=== PATIENT | female | born 1935 | race Caucasian/White ===

== ENCOUNTER 2017-09-21 06:09 | Day surgery (SDC) | payer MEDICARE ==
[~2017-09-21 06:09] MED LIST: Buffered Lidocaine 0.9% SYRIN* 5 ML/SYR SYRINGE INTRADERM ONE; Famotidine TAB* 20 MG PO ONE; Metoclopramide TAB* 10 MG PO ONE
[2017-09-21] MEDS ORDERED: Metoclopramide TAB* 10 MG ONE (06:23)
[2017-09-21] MEDS ORDERED: Famotidine TAB* 20 MG ONE (06:23)
[2017-09-21] MEDS ORDERED: Buffered Lidocaine 0.9% SYRIN* 5 ML/SYR SYRINGE ONE (06:23)
[2017-09-21] MEDS ORDERED: ceFAZolin 2 GM PREMIX (*) 2 GM/50 ML BAG IVPB ONE (06:23)
[2017-09-21] MEDS ORDERED: Lidocaine 1% INJ* 10 MG/ML 30 ML SDV ONE (07:05)
[2017-09-21] MEDS ORDERED: fentaNYL* 50 MCG/ML 2 ML VIAL (100 MCG VIAL) ONE (07:14)
[2017-09-21] MEDS ORDERED: Propofol* 10 MG/ML 20 ML BTL IV PUSH ONE (07:14)
[2017-09-21] MEDS ORDERED: Ondansetron INJ* 2 MG/ML VIAL ONE (07:14)
[2017-09-21] MEDS ORDERED: Lidocaine 2% PF * 5 ML VIAL ONE (07:14)
[2017-09-21] MEDS ORDERED: Dexamethasone IV* 4 MG/ML 1 ML (4 MG) ONE (07:14)
[2017-09-21] MEDS ORDERED: Midazolam* 1 MG/ML 5 ML VIAL (5 MG) ONE (07:15)
--- NOTE | 2017-09-21 08:56 | RAD ---
INDICATION: PowerPort placement COMPARISON: None FINDINGS: 12.7 seconds of fluoroscopy were provided for the surgical department. Fluoroscopic spot imaging of the chest were obtained for operative control and show placement of a right-sided PowerPort catheter. The course of the catheter appears as expected with termination in the superior vena cava . CPT II Codes: G9500 (fluoro time doc)
[2017-09-21 09:40] VITALS: BP 149/64
[2017-09-21] MEDS ORDERED: fentaNYL* 50 MCG/ML 2 ML VIAL (100 MCG VIAL) IV PRN (10:06)
[2017-09-21] MEDS ORDERED: Naloxone* 0.4 MG/ML 1 ML VIAL IV PRN (10:06)
[2017-09-21] MEDS ORDERED: Ondansetron ODT TAB* 4 MG PO PRN (10:06)
--- NOTE | 2017-09-22 12:25 | OP ---
CC: Milton Carolina MD; Db Hurley MD; Chandrika Browne MD * DATE OF OPERATION: 09/21/17 - [facility] DATE OF : 35 SURGEON: Db Lira MD REFRACTORY TECHNICIAN: None. ANESTHESIOLOGIST: Dr. Rincon. ANESTHESIA: Local MAC. PRE-OP DIAGNOSIS: Esophageal carcinoma. POST-OP DIAGNOSIS: Esophageal carcinoma. OPERATIVE PROCEDURE: Placement of PowerPort, right subclavian. ESTIMATED BLOOD LOSS: Less than 5 mL. IV FLUIDS: Crystalloids. SPECIMENS: None. DRAINS: None. COMPLICATIONS: None. COUNTS: The instrument, needle, and sponge counts were correct. DESCRIPTION OF PROCEDURE: The patient was brought to the operating room and placed on the table supine. Sequential compression devices were placed on both lower extremities. She was positioned and padded appropriately. She was prepped and draped in usual sterile fashion. She received appropriate intravenous antibiotics. A time-out was performed. Local anesthetic was infiltrated into the skin and soft tissue for a right subclavian approach. After accessing the right subclavian vein without difficulty, a guidewire was positioned in the superior vena cava under fluoroscopic guidance. Additional anesthetic was then infiltrated in the skin and soft tissue of the right upper chest to create the pocket. After creating an incision transversely, the subcutaneous tissues were divided with cautery and elevated off the pectoralis muscle. A counter incision was made at the guidewire incision site and an 8-Urdu PowerPort catheter was back tunneled to the pocket. The peel-away sheath and dilator were advanced under fluoroscopic guidance, and the catheter was advanced into the superior vena cava and the peel -away sheath was discarded. Position of the catheter was confirmed under fluoroscopy. The catheter was cut to 23 cm length and connected to the PowerPort, which was placed into the pocket. The port was through and flushed easily. The port was secured to the pocket with a 2-0 Prolene. Pocket was closed in 2 layers with 3-0 Vicryl for the subcutaneous tissue, 4-0 Monocryl for the skin, and 4-0 Monocryl was also used to close the counter incision. Steri-Strips and Tegaderm were applied. The port was flushed with heparinized saline. The patient tolerated the procedure well. There were no immediate complications. She was transferred to recovery in stable condition. [id number]/[facility] #: [id number]
== END 2017-09-21 09:54 | disposition home or self-care (01) ==
LOC: OR 06:09
PROVIDERS: ATTEND Surgery
DX: C15.9 Malignant neoplasm of esophagus, unspecified (principal); I10 Essential (primary) hypertension; I35.0 Nonrheumatic aortic (valve) stenosis; D64.9 Anemia, unspecified; M19.90 Unspecified osteoarthritis, unspecified site; K21.9 Gastro-esophageal reflux disease without esophagitis; K57.90 Diverticulosis of intestine, part unspecified, without perforation or abscess without bleeding
CPT/HCPCS: 76000; A9270-GY; C1788; J0690; J1100; J1642; J2250; J2405; J2704; J3010

== ENCOUNTER 2017-10-14 21:17 | Inpatient (IN) | payer MEDICARE ==
[2017-10-14 22:14] LABS: ABS Basophils 0 10^3/ul (0-0.2); ABS Eosinophils 0 10^3/ul (0-0.6); ABS Lymphocytes 0.1 10^3/ul (1.0-4.8); ABS Monocytes 0.2 10^3/ul (0-0.8); ABS Neutrophils 3.5 10^3/ul (1.5-7.7); ABS Nucleated RBC 0 10^3/ul; Eosinophil % 0.2 % (0-6); Hematocrit 31 % (35-47); Hemoglobin 9.9 g/dl (12.0-16.0); Lymphocyte % 1.7 % (25-47); Mean Corpuscular HGB Conc 33 g/dl (31-36); Mean Corpuscular Hemoglobin 27 pg (27-31); Mean Corpuscular Volume 84 fL (80-97); Mean Platelet Volume 7.9 um3 (7.4-10.4); Nucleated Red Blood Cells % 0; Platelet Count 184 10^3/ul (150-450); Red Blood Count 3.65 10^6/ul (4.0-5.4); Red Cell Distribution Width 17 % (10.5-15); White Blood Count 3.8 10^3/ul (3.5-10.8)
[2017-10-14 22:21] LABS: INR 0.98 (0.77-1.02)
[2017-10-14 22:22] LABS: Urine Appearance Clear; Urine Blood 1+ (Negative); Urine Color Straw; Urine Ketones Negative (Negative); Urine Protein Negative (Negative); Urine Specific Gravity 1.009 (1.010-1.030); Urine Urobilinogen Negative (Negative)
--- NOTE | 2017-10-14 22:28 | RAD ---
INDICATION: Weakness COMPARISON: Most recent comparison chest x-rays dated July 17, 2016 TECHNIQUE: Single AP portable view of the chest was obtained. FINDINGS: Image quality is compromised due to the relative inferiority of a portable chest x-ray. There is a right subclavian vein Mediport with the tip terminating at the superior vena cava. There is a mild degree of cardiomegaly with faint calcification overlying the arch of the aorta. There is density obscuring the left lung base with left costophrenic angle blunting. More superiorly the left lung is well aerated. The right lung is well aerated. Visualized bones are normal for the patient's age. IMPRESSION: Density of obscuring the left lung base could represent consolidation and/or pleural effusion.
[2017-10-14 22:38] LABS: EGFR Non-African American 80.3 (>60)
[2017-10-14] MEDS ORDERED: Iohexol 350* (CONTRAST) 500 ML MDV IV ONE (22:51)
--- NOTE | 2017-10-15 00:40 | ED ---
Sangeetha Marti Elizabeth, scribed for Ki Gale MD on 10/14/17 at 2241 . Complex/Multi-Sys Presentation - HPI Summary HPI Summary: This patient is an 81 year old F presenting to [facility] with a chief complaint of weakness since earlier tonight. The patient reports that she started shaking and fell on the floor of her kitchen and was on the floor for 30 minutes, unable to get up. The patient reports that she hit her head when she fell but denies any pain or LOC. Symptoms aggravated by nothing. Symptoms alleviated by nothing. Patient reports bilateral swelling of her calves, inability to ambulate , and a cough. The patient denies and trauma or abrasions. The patient has been diagnosed with esophageal cancer and has been having radiation tx every day and chemotherapy weekly. The patient lives alone at home but her daughter lives across the garden. - History Of Current Complaint Chief Complaint: EDGeneral Time Seen by Provider: 10/14/17 21:27 Hx Obtained From: Patient Onset/Duration: Sudden Onset, Still Present Timing: Constant Severity Currently: Mild Severity Initially: Mild Aggravating Factor(s): nothing Alleviating Factor(s): nothing Associated Signs And Symptoms: Positive: Weakness, Edema - bilateral calves, Recent Trauma - fall from standing position, hit her head but no LOC. 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 Respiratory History: Denies: Hx Asthma, Hx Chronic Obstructive Pulmonary Disease (COPD) GI History: Reports: Hx Gastroesophageal Reflux Disease, Hx Hiatal Hernia Denies: Hx Gall Bladder Disease History: Reports: Hx Kidney Stones - LAST YEAR Denies: Hx Chronic Renal Failure Musculoskeletal History: Reports: Hx Arthritis - OSTEOARTHRITIS, Hx Back Problems Sensory History: Reports: Hx Contacts or Glasses - TO READ Denies: Hx Hearing Aid Opthamlomology History: Reports: Hx Contacts or Glasses - TO READ Neurological History: Denies: Hx CVA, Hx Migraine, Hx Seizures Psychiatric History: Reports: Hx Depression - passing of love ones - Cancer History Cancer Type, Location and Year: ESOPHAGEAL CANCER 2018 Hx Chemotherapy: No - WILL START WEDNESDAY - Surgical History Surgery Procedure, Year, and Place: Uteran Prolapse repair , right total hip Hx Anesthesia Reactions: No Infectious Disease History: No Infectious Disease History: Denies: Traveled Outside the [place] in Last 30 Days - Family History Known Family History: Positive: Hypertension - Social History Alcohol Use: None Substance Use Type: Reports: None Smoking Status (MU): Never Smoked Tobacco Review of Systems Negative: Chest Pain Positive: Cough Positive: Edema - bilateral calf edema Positive: Weakness. Negative: Headache, Syncope All Other Systems Reviewed And Are Negative: Yes Physical Exam - Summary Physical Exam Summary: VITAL SIGNS: Reviewed. GENERAL: ~Patient is a well-developed and nourished female who is lying comfortable in the stretcher. Patient is not in any acute respiratory distress. HEAD AND FACE: No signs of trauma. No ecchymosis, hematomas or skull depressions. No sinus tenderness. EYES: PERRLA, EOMI x 2, No injected conjunctiva, no nystagmus. EARS: Hearing grossly intact. Ear canals and tympanic membranes are within normal limits. MOUTH: Oropharynx within normal limits. NECK: Supple, trachea is midline, no adenopathy, no JVD, no carotid bruit, no c- spine tenderness, neck with full ROM. CHEST: Symmetric, no tenderness at palpation LUNGS: Clear to auscultation bilaterally. No wheezing or crackles. CVS: Regular rate and rhythm, S1 and S2 present, no gallops appreciated. 2/6 systolic murmur auscultated over the left sternal bone ABDOMEN: Soft, non-tender. No signs of distention. No rebound no guarding, and no masses palpated. Bowel sounds are normal. EXTREMITIES: FROM in all major joints, bilateral +1 pedal edema, no cyanosis or clubbing. NEURO: Alert and oriented x 3. No acute neurological deficits. Speech is normal and follows commands. SKIN: Dry and warm Triage Information Reviewed: Yes Vital Signs On Initial Exam: Initial Vitals Temp Pulse Resp BP Pulse Ox 99.2 F 82 16 146/87 96 10/14/17 21:20 10/14/17 21:20 10/14/17 21:20 10/14/17 21:20 10/14/17 21:20 Vital Signs Reviewed: Yes Diagnostics - Vital Signs Vital Signs Temp Pulse Resp BP Pulse Ox 10/14/17 21:21 82 11 146/87 95 10/14/17 21:20 99.2 F 82 16 146/87 96 - Laboratory Result Diagrams: 10/14/17 22:07 10/14/17 22:07 Lab Statement: Any lab studies that have been ordered have been reviewed, and results considered in the medical decision making process. - Radiology CXR Xray Interpretation: Positive (See Comments) - IMPRESSION: Density of obscuring the left lung base could represent consolidation and/or pleural effusion. Dr. Gale has reviewed this report. Radiology Interpretation Completed By: Radiologist - CT CT Brain CT Interpretation: No Acute Changes - Impression: No acute brain parenchymal abnormality. No hemorrhage, mass or acute territorial infarct. Age-related involutional changes and chronic vessel ischemic changes. Chronic lacunar infarcts now better seen in bilateral thalami compared to 05/23/14. No skull fracture. Minimal mucoperiosteal thickening paranasal sinuses. Visualized mastoid air cells clear. Dr. Gale has reviewed this report. CT Interpretation Completed By: Radiologist CTA Chest CT Interpretation: Positive (See Comments) - moderate hiatal hernia with new possible wall thickening in herniated portion of stomach compare to 05/23/14. Minimal fluid/debris in esophagus. 1.6 cystic structure in pancreatic body, slightly larger than 1.4 cm size seen on prior exam. New or better seen cystic lesions in pancreatic head and proximal body measuring 1.0 and 1.2 cm, respectively. 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 Small pleural effusion appearing. Associated compressive atelectasis left lower lobe. Small left thyroid calcification. Small left hepatic cyst or hemangioma. Partly seen indeterminate right adrenal nodule measuring at least 2.0 cm, also present on prior exam. Punctuate nonobstructing stone left kidney. Dr. Gale has reviewed this report. CT Interpretation Completed By: Radiologist - EKG 22:05 Cardiac Rate: NL - at 80 BPM Ectopy: PACs EKG Interpretation: normal axis, normal intervals, no ischemic changes, LVH Complex Multi-Symp Course/Dx Course Of Treatment: Patient is unable to ambulate and is shaky. An EKG reveals sinus rhythm at 80 BPM with PACs, normal axis, normal intervals, no ischemic changes, LVH. CXR reveals, per radiologist, density of obscuring the left lung base could represent consolidation and/or pleural effusion. CTA chest reveals, per radiologist, moderate hiatal hernia with new possible wall thickening in herniated portion of stomach compare to 05/23/14. Minimal fluid/debris in esophagus. 1.6 cystic structure in pancreatic body, slightly larger than 1.4 cm size seen on prior exam. New or better seen cystic lesions in pancreatic head and proximal body measuring 1.0 and 1.2 cm, respectively. 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 Small pleural effusion appearing. Associated compressive atelectasis left lower lobe. Small left thyroid calcification. Small left hepatic cyst or hemangioma. Partly seen indeterminate right adrenal nodule measuring at least 2.0 cm, also present on prior exam. Punctuate nonobstructing stone left kidney. ED physician has reviewed this radiology report. We discussed patient care with Dr. Howard and he agrees to admit the patient [place] [facility] Patient will be admitted with dx of weakness, difficulty walking and esophageal CA. The patient is agreeable with this plan. - Diagnoses Provider Diagnoses: Esophageal cancer, Weakness, Difficulty walking - Physician Notifications Discussed Care Of Patient With: Vito Parr MD Time Discussed With Above Provider: 00:20 Instructed by Provider To: Admit As Inpatient Discharge - Sign-Out/Discharge Documenting (check all that apply): Discharge/Admit/Transfer - Discharge Plan Condition: Stable Disposition: ADMITTED TO [facility] Referrals: Hollie DELACRUZ,Chandrika Hunt [Primary Care Provider] - The documentation as recorded by the Sangeetha pelayo Elizabeth accurately reflects the service I personally performed and the decisions made by , Ki Gale MD.
[2017-10-15] MEDS ORDERED: Albuterol 2.5 MG/3 ML NEB.SOL* (0.083%) INH PRN (01:05)
[2017-10-15] MEDS ORDERED: Acetaminophen TAB* 325 MG PO PRN (01:05)
[2017-10-15] MEDS ORDERED: Ondansetron 40 MG VIAL* 2 MG/ML 20 ML VIAL IV PRN (01:05)
[2017-10-15] MEDS ORDERED: cefTRIAXone(*) 1 GM ADVAN/BAG ONE (01:14)
[2017-10-15] MEDS ORDERED: Magnesium Sulfate 2 GM IV* 2 GM/50 ML BAG IVPB ONE ×2 (01:17→14:44)
[2017-10-15] MEDS: cefTRIAXone(*) 1 GM in NS 0.9% 50 ML* 50 ML IVPB SCH (01:19)
[2017-10-15] MEDS: Albuterol/Ipratropium NEB.SOL* Albuterol 2.5 MG/Ipratropium 0.5 MG 3 ML INH SCH ×3 (03:07→07:35)
[2017-10-15] MEDS: Azithromycin IV(*) 500 MG in NS 0.9% 250 ML* 250 ML IVPB SCH (04:06)
[2017-10-15 05:18] LABS: ABS Basophils 0 10^3/ul (0-0.2); ABS Eosinophils 0 10^3/ul (0-0.6); ABS Lymphocytes 0.1 10^3/ul (1.0-4.8); ABS Monocytes 0.2 10^3/ul (0-0.8); ABS Neutrophils 3.6 10^3/ul (1.5-7.7); ABS Nucleated RBC 0 10^3/ul; Eosinophil % 0 % (0-6); Hematocrit 28 % (35-47); Mean Corpuscular HGB Conc 33 g/dl (31-36); Mean Corpuscular Hemoglobin 27 pg (27-31); Mean Corpuscular Volume 84 fL (80-97); Nucleated Red Blood Cells % 0.1; Platelet Count 154 10^3/ul (150-450); Red Blood Count 3.29 10^6/ul (4.0-5.4); Red Cell Distribution Width 17 % (10.5-15); White Blood Count 3.9 10^3/ul (3.5-10.8)
[2017-10-15 05:45] LABS: EGFR Non-African American 110.7 (>60)
[2017-10-15] MEDS: Heparin VIAL(*) 5000 UNITS/ML VIAL (FIVE THOUSAND) SUBCUT SCH ×3 (06:00→22:44)
--- NOTE | 2017-10-15 07:48 | RAD ---
INDICATION: Fall. Intracranial injury. COMPARISON: CT brain May 23, 2014 TECHNIQUE: Noncontrast axial source images were acquired from the skull base to the vertex. FINDINGS: Ventricles/sulci: There is age-related cortical atrophy with compensatory dilatation of the CSF spaces. Brain parenchyma: There is periventricular, subcortical white matter, and deep rodriguez matter change compatible with chronic ischemia. Intracranial hemorrhage:None. Extra-axial spaces: There are no abnormal extra axial fluid collections or evidence of extra-axial mass. Calvarium: There is no calvarial fracture or other calvarial abnormality. Scalp: There is no evidence of scalp or extracalvarial soft tissue abnormality. Paranasal sinuses/mastoid: The paranasal sinuses and mastoid air cells are clear. Other: None. IMPRESSION: NO ACUTE INTRACRANIAL FINDINGS. CHRONIC ISCHEMIC CHANGES.
--- NOTE | 2017-10-15 08:06 | RAD ---
Indication: Cough. Contrast: Administered 61.2 ml of OMNIPAQUE 350 mg/ml CTA of the chest was performed after IV contrast demonstration. Coronal and sagittal reconstructed images were obtained. Comparison is made with previous exam dated August 26, 2017. Inferior thyroid lobes are unremarkable. No mediastinal adenopathy is noted. The heart demonstrates no pericardial effusion. The pulmonary arterial tree is well opacified. There are no filling defects to suggest pulmonary embolus. The thoracic aorta demonstrates no evidence of thoracic aortic dissection. Ectasia of the ascending aorta is noted measuring up to 3.8 cm at the level of the right pulmonary artery. The trachea and major bronchi appear patent. Bibasilar atelectasis is noted. Small to moderate left pleural effusion is unchanged from previous exam. There is a moderate-sized hiatal hernia noted. There is suggestion of some wall thickening of the herniated stomach. Inflammatory changes are not excluded. The visualized abdominal organs are otherwise unremarkable. IMPRESSION: Left pleural effusion with left basilar atelectasis. Diffuse wall thickening of the herniated stomach. No evidence of pulmonary embolus is noted. No evidence of aortic dissection is noted. Cardiomegaly is noted.
[2017-10-15] MEDS: Ferrous Gluconate TAB* 324 MG TAB PO SCH (08:48)
[2017-10-15] MEDS ORDERED: Metoprolol Tartrate TAB* 100 MG TAB PO SCH (09:00)
[2017-10-15] MEDS ORDERED: amLODIPine TAB* 5 MG PO SCH (09:00)
--- NOTE | 2017-10-15 10:46 | PN ---
Progress Note - Progress Note Date of Service: 10/15/17 SOAP: Subjective: [81 yo female with esophageal CA undergoing active chemoradiation with weekly carbo/taxol. She has been tolerating treatment very well. She developed cough and chills yesterday afternoon and experienced a fall at home. She has had some increased weakness. This am, Elsy states she is feeling relatively well. Still has an occasional cough. No SOB. Nursing reports she was 2 assist to the commode this morning. ] Objective: [ Acetaminophen (Tylenol Tab*) 650 mg PO Q4H PRN PRN Reason: FEVER/PAIN Albuterol (Ventolin 2.5 Mg/3 Ml Neb.Evelia*) 2.5 mg INH Q2H PRN PRN Reason: SOB/WHEEZING Amlodipine Besylate (Norvasc Tab*) [facility] [place] Last Admin: 10/15/17 08:47 Dose: 2.5 mg Ferrous Gluconate (Fergon Tab*) 324 mg [facility] [place] Last Admin: 10/15/17 08:48 Dose: 324 mg Heparin Sodium (Porcine) (Heparin Vial(*)) 5,000 units SUBCUT Q8HR [facility] Last Admin: 10/15/17 06:00 Dose: 5,000 units Heparin Sodium (Porcine) (Heparin Flush(*)) 5 ml IV FLUSH DAILY [facility] PRN Reason: Protocol Last Admin: 10/15/17 08:43 Dose: Not Given Ceftriaxone Sodium 1 gm/ (Sodium Chloride) 50 mls @ 200 mls/hr IVPB Q24H [facility] Last Admin: 10/15/17 01:19 Dose: 200 mls/hr Azithromycin 500 mg/ Sodium (Chloride) 250 mls @ 250 mls/hr IVPB Q24H [facility] Last Admin: 10/15/17 04:06 Dose: 250 mls/hr Metoprolol Tartrate (Lopressor Tab*) 100 [facility] [place] Last Admin: 10/15/17 08:47 Dose: 100 mg Ondansetron HCl (Zofran 40 Mg Vial*) 4 mg IV Q6H PRN PRN Reason: NAUSEA Laboratory Results - last 24 hr 10/14/17 10/14/17 10/14/17 21:59 22:07 22:07 WBC 3.8 RBC 3.65 L Hgb 9.9 L Hct 31 L MCV 84 MCH 27 MCHC 33 RDW 17 H Plt Count 184 MPV 7.9 Neut % (Auto) 92.9 H Lymph % (Auto) 1.7 L Washburn % (Auto) 4.9 Eos % (Auto) 0.2 Baso % (Auto) 0.3 Absolute Neuts (auto) 3.5 Absolute Lymphs (auto) 0.1 L Absolute Monos (auto) 0.2 Absolute Eos (auto) 0 Absolute Basos (auto) 0 Absolute Nucleated RBC 0 Nucleated RBC % 0 INR (Anticoag Therapy) 0.98 APTT 30.3 Sodium Potassium Chloride Carbon Dioxide Anion Gap BUN Creatinine Est GFR ( Amer) Est GFR (Non-Af Amer) BUN/Creatinine Ratio Glucose Lactic Acid Calcium Magnesium Total Bilirubin AST ALT Alkaline Phosphatase Total Creatine Kinase C-Reactive Protein Total Protein Albumin Globulin Albumin/Globulin Ratio Lipase Urine Color Straw Urine Appearance Clear Urine pH 7.0 Ur Specific Wayan 1.009 L Urine Protein Negative Urine Ketones Negative Urine Blood 1+ A Urine Nitrate Negative Urine Bilirubin Negative Urine Urobilinogen Negative Ur Leukocyte Esterase Negative Urine WBC (Auto) Trace(0-5/hpf) Urine RBC (Auto) 1+(3-5/hpf) A Ur Squamous Epith Cells Present A Urine Bacteria 1+ A Urine Glucose Negative 10/14/17 10/14/17 10/15/17 22:07 22:07 04:51 WBC 3.9 RBC 3.29 L Hgb 9.0 L Hct 28 L MCV 84 MCH 27 MCHC 33 RDW 17 H Plt Count 154 MPV 8.0 Neut % (Auto) 92.8 H Lymph % (Auto) 2.0 L [place] % (Auto) 5.1 Eos % (Auto) 0 Baso % (Auto) 0.1 Absolute Neuts (auto) 3.6 Absolute Lymphs (auto) 0.1 L Absolute Monos (auto) 0.2 Absolute Eos (auto) 0 Absolute Basos (auto) 0 Absolute Nucleated RBC 0 Nucleated RBC % 0.1 INR (Anticoag Therapy) APTT Sodium 136 L Potassium 3.5 Chloride 99 L Carbon Dioxide 32 Anion Gap 5 BUN 15 Creatinine 0.70 Est GFR ( Amer) 103.3 Est GFR (Non-Af Amer) 80.3 BUN/Creatinine Ratio 21.4 H Glucose 109 H Lactic Acid 1.1 Calcium 8.7 Magnesium 1.7 L Total Bilirubin 0.50 AST 23 ALT 13 Alkaline Phosphatase 118 H Total Creatine Kinase 144 C-Reactive Protein 17.22 H Total Protein 6.2 L Albumin 3.2 Globulin 3.0 Albumin/Globulin Ratio 1.1 Lipase 19 Urine Color Urine Appearance Urine pH Ur Specific Wayan Urine Protein Urine Ketones Urine Blood Urine Nitrate Urine Bilirubin Urine Urobilinogen Ur Leukocyte Esterase Urine WBC (Auto) Urine RBC (Auto) Ur Squamous Epith Cells Urine Bacteria Urine Glucose 10/15/17 04:51 WBC RBC Hgb Hct MCV MCH MCHC RDW Plt Count MPV Neut % (Auto) Lymph % (Auto) Washburn % (Auto) Eos % (Auto) Baso % (Auto) Absolute Neuts (auto) Absolute Lymphs (auto) Absolute Monos (auto) Absolute Eos (auto) Absolute Basos (auto) Absolute Nucleated RBC Nucleated RBC % INR (Anticoag Therapy) APTT Sodium 135 L Potassium 3.1 L Chloride 99 L Carbon Dioxide 30 Anion Gap 6 BUN 12 Creatinine 0.53 Est GFR ( Amer) 142.4 Est GFR (Non-Af Amer) 110.7 BUN/Creatinine Ratio 22.6 H Glucose 116 H Lactic Acid Calcium 7.8 L Magnesium Total Bilirubin AST ALT Alkaline Phosphatase Total Creatine Kinase C-Reactive Protein Total Protein Albumin Globulin Albumin/Globulin Ratio Lipase Urine Color Urine Appearance Urine pH Ur Specific Wayan Urine Protein Urine Ketones Urine Blood Urine Nitrate Urine Bilirubin Urine Urobilinogen Ur Leukocyte Esterase Urine WBC (Auto) Urine RBC (Auto) Ur Squamous Epith Cells Urine Bacteria Urine Glucose Vital Signs: Temp Pulse Resp BP Pulse Ox 99.0 F 80 16 109/48 98 10/15/17 07:17 10/15/17 10:29 10/15/17 10:29 10/15/17 07:17 10/15/17 10:29 Exam: Gen: Well appearing 81 yo female in NAD HEENT: NCAT, MMM CV: 3/6 murmur, RRR Resp: occasional rhonchi and crackles at lung base Abd: soft, nonTTP Ext: 1+ LE edema Skin: No rash] Assessment: [81 yo female with esophageal CA under going concurrent chemoradiation with weekly carbo/taxol, she has completed 3 weeks and has been tolerating treatment very well. She developed what sounds like relatively quick onset of cough and chills yesterday. Not neutropenic, no measured fevers here. Small infiltrate in LLL, treating for PNA. She is quite weak and would benefit from PT/OT eval to help with appropriate disposition planning.] Plan: [1. PNA - cont ceftriaxone/azithromycin 2. Esophageal CA - cont daily RT - PT/OT eval Dispo: pending PT/OT consult, likely home tomorrow with home care]
--- NOTE | 2017-10-15 11:54 | HP ---
CC: Dr. Chandrika Browne; Dr. Carolina * HISTORY AND PHYSICAL: DATE OF ADMISSION: 10/15/17 PRIMARY CARE PROVIDER: Dr. Chandrika Browne. ATTENDING PHYSICIAN WHILE IN THE HOSPITAL: Dr. Rom Howard * (report dictated by Jean-Pierre Brooke NP) CHIEF COMPLAINT: 1. Fall. 2. Shaking. 3. Weakness. HISTORY OF PRESENT ILLNESS: Ms. Patel is an 81-year-old female patient. She has a history of esophageal cancer and in addition to this, hypertension and osteoarthritis. She is receiving active chemo and she is also receiving active radiation. She says that this afternoon she was at a lunch and she was having episodes of shaking and she described it as a shivering. She says she was able to get home, she got home and had an episode where she was coming out of the bathroom and she had an another episode where she was shaking and felt very chilled. She fell down to the floor, she hit her head. She had no loss of consciousness or chest pain. She said that she was trying to go to the bathroom , could not hold and she urinated a large amount of water she says. She said that she was found by her family member and they were concerned and called 911. She denies having any pain currently. She says that she just kind of slumped down and went down onto the floor. She does state that she has been sick over the last few days, complaining over the last 4 to 5 days of having a cough and chilled occasionally but no fevers. She says the cough has been productive of a white sputum. There has been no reports of nausea, vomiting or diarrhea or any abdominal discomfort, shortness of breath, or chest pain, but she says she has been coughing and that it has been getting worse and she feels congested and stuffed up. She did undergo chemo on Wednesday. She says that her appetite has been down, but there was concern because of a fall today. She came into the ED and because of the fall and the weakness, we were asked to evaluate for admission. PAST MEDICAL HISTORY: Significant for: 1. Esophageal cancer. 2. Hypertension. 3. Osteoarthritis. PAST SURGICAL HISTORY: 1. The patient has had a PowerPort placement. 2. Eye surgery. 3. Right total hip arthroplasty. 4. Hysterectomy. HOME MEDICATIONS: Include: 1. Ibuprofen 400 mg p.o. b.i.d. 2. Lasix 20 mg p.o. daily. 3. Ferrous gluconate 324 mg daily. 4. Vitamin D 400 units p.o. daily. 5. Norvasc 1 tablet p.o. daily. 6. Tylenol 500 mg p.o. daily. 7. Cod liver oil 1 capsule daily. 8. Naproxen 220 mg p.o. b.i.d. 9. Lopressor 100 mg p.o. q.a.m. 10. Losartan 100 mg p.o. q.a.m. ALLERGIES TO MEDICATIONS: Include PROTONIX and LIPITOR. FAMILY HISTORY: Mother had a history of breast cancer. Father had a history of [place]. SOCIAL HISTORY: She does not smoke. She does not drink. The surrogate decision maker is her daughter, Sofie. REVIEW OF SYSTEMS: There is no documented fever. She denied having any significant weight change. There is no double vision. She denies having any ear discharge. There is no rhinorrhea. There is no sore throat. No thyroid enlargement. She denied having any chest pain to me. There is no orthopnea. There is no nocturnal dyspnea. She denies having any abdominal pain. There was no nausea, no vomiting. No dysuria, no frequency. There was no seizure. She denied any loss of consciousness. No pruritus, no skin ulcerations. Review of 14 systems completed, all others were negative. PHYSICAL EXAMINATION GENERAL: At this time, Ms. Patel is an 81-year-old female patient. She is sitting in the ED stretcher. She does not appear to be in any acute distress. She appears to be well nourished and well developed. VITAL SIGNS: Blood pressure 132/64, pulse 86, respirations 16, O2 sat 94% on room air, temperature 98. HEENT: Head is atraumatic and normocephalic. Eyes: EOMs are intact. Sclerae are anicteric and not pale. Throat: Oral mucosa appears to be dry. No oropharyngeal erythema. NECK: Supple. LUNGS: She did have some rhonchi in the upper lobes and in addition to this in the left lower lobes, she did have some wheezing bilaterally in the lower lobes and some crackles in the left base. She had equal diaphragmatic expansion. HEART: Sounds S1, S2. She had a regular rate and rhythm. She did have a grade 2- 3 murmur in the aortic listening area, systolic in nature. No rubs or gallops. ABDOMEN: Soft, flat, nontender. Bowel sounds are present. EXTREMITIES: Pulses were 2+ throughout. She had no peripheral edema. She had 5/5 strength. NEUROLOGICAL: She is awake, alert, and oriented x3. Her speech is clear. She had no gross obvious focal deficits. SKIN: Intact. LABORATORY DATA/DIAGNOSTIC STUDIES: Labs reveal WBC of 3.8, RBC of 3.65, hemoglobin of 9.9, hematocrit of 31, and a platelet count of 194. The INR was 0.98, PTT of 30.3. Her sodium was 136, potassium of 3.5, chloride of 99, bicarb 32, BUN 15, creatinine 0.70, glucose 109, lactic acid 1.1, calcium 8.7. Her mag was low at 1.7. Total bili was 0.5, AST was 23, ALT 13, alk phos 118. CK 114, CRP of 17, albumin of 3.2, lipase normal. Urine showed low specific gravity of 1.009, 1+ blood, 1+ rbc's, 1+ bacteria. She did have a chest CTA obtained today and overnight read was moderate hiatal hernia with new possible wall thickening in herniated portion of stomach compared to 05/23/14, correlate to gastritis, we will consider followup endoscopy to exclude alternative possibility of mass. Minimal fluid debris in the esophagus. She had 1.6 cm cystic structure in the pancreatic body, slightly larger than 1.4 size seen on prior exam. New or better seen cystic lesions in the pancreas. Pancreatic head and proximal body measuring 1.2 cm and 1.2 cm respectively. All 3 lesions could represent intraductal papillary mucinous neoplasms, we will consider pancreas protocol CT to assess for possibility of cystic malignancy. Small left pleural effusion appearing associated with compressive atelectasis of the left lower lobe. No PE. No aortic dissection. Ectatic ascending aorta 4.0 cm in diameter at the level of the right pulmonary artery. No pneumonia. Small left thyroid calcification. Right chest port, catheter tip near the superior cavoatrial junction. Scarring left greater than right apices. Small left hepatic cyst or hemangioma partially seen. Indeterminate right adrenal nodule measuring at 2 cm also present on prior exam and she had a nonobstructing left kidney stones. She also had a CT brain, which showed no acute brain parenchymal abnormality. No hemorrhage, mass effect or acute territorial infarct. Age-related involutional changes and chronic small vessel ischemic changes. Chronic lacunar infarcts. No skull fracture. Minimal mucosal periosteal thickening, paranasal sinuses. She also had an EKG obtained today as well, which did show a normal sinus rhythm with LVH, rate of 80. She had no ST elevations or T-wave inversions. When I look at her previous EKG, thalia's EKG and the last EKG was from 2 years ago, the thalia's EKG actually looks improved. She had ST depression noted on her previous EKG but that has now resolved. Old medical records were reviewed. ASSESSMENT AND PLAN: Ms. Patel is an 81-year-old female patient coming into the ED today with complaints of fall and shaking. She had no loss of consciousness and she is cognizant of the entire event. Because of the fall and the weakness, we were asked to evaluate for admission. She will be admitted under inpatient status for: 1. Weakness and fall. I suspect that she may have an early developing pneumonia. She is congested. She is coughing. She may have had rigors tonight. She is currently immunocompromised with the cancer and the fact that she is on chemotherapy and radiation. My plan will be to put her on antibiotics empirically, gaspar culture her, get legionella antigen, Strep pneumo antigen, sputum evaluation and culture. I did order nebs because she is wheezing and I put her on albuterol. In addition to this, we will continue to follow her closely and monitor for any fevers and I suspect this is probably why she fell today, most likely she had rigors and she was chilled and she described that to me tonight. We will continue to monitor her and hopefully with antibiotic and forcing p.o. fluids, she will improve and we will continue to monitor. 2. Esophageal cancer. Follow up with her primary oncologist. 3. Hypertension. In the setting of her being dehydrated, I am going to hold the Lasix that she normally takes, we will hold the losartan. Continue the Norvasc and her beta-edi for now and we can always reinstate BP meds when she is improving. 4. Osteoarthritis. I have ordered p.r.n. Tylenol. 5. Code status. The patient is a full code. 6. DVT prophylaxis. The patient has heparin subcu. 7. Fluids, electrolytes, and nutrition. She can have a regular diet. TIME SPENT: Time spent on the admission was 60 minutes; greater than half the time was spent [id number] with the patient obtaining my history and physical, other half time was spent going over the plan of care with the patient and implementing plan of care. I did discuss the plan of care with my attending physician, Dr. Howard, he is in agreement. JEAN-PIERRE BROOKE, JUDAH [id number]/CPS #: [id number] ANGELITO
[2017-10-16] MEDS: cefTRIAXone(*) 1 GM in NS 0.9% 50 ML* 50 ML IVPB SCH (02:37)
[2017-10-16] MEDS: Azithromycin IV(*) 500 MG in NS 0.9% 250 ML* 250 ML IVPB SCH (03:12)
[2017-10-16] MEDS: Heparin VIAL(*) 5000 UNITS/ML VIAL (FIVE THOUSAND) SUBCUT SCH ×3 (05:57→22:12)
[2017-10-16 06:19] LABS: ABS Basophils 0 10^3/ul (0-0.2); ABS Eosinophils 0 10^3/ul (0-0.6); ABS Lymphocytes 0.1 10^3/ul (1.0-4.8); ABS Monocytes 0.1 10^3/ul (0-0.8); ABS Neutrophils 1.5 10^3/ul (1.5-7.7); ABS Nucleated RBC 0 10^3/ul; Hematocrit 26 % (35-47); Hemoglobin 8.5 g/dl (12.0-16.0); Lymphocyte % 7.6 % (25-47); Mean Corpuscular HGB Conc 33 g/dl (31-36); Mean Corpuscular Hemoglobin 28 pg (27-31); Mean Corpuscular Volume 83 fL (80-97); Mean Platelet Volume 8.1 um3 (7.4-10.4); Nucleated Red Blood Cells % 0.1; Platelet Count 135 10^3/ul (150-450); Red Blood Count 3.11 10^6/ul (4.0-5.4); Red Cell Distribution Width 17 % (10.5-15); White Blood Count 1.8 10^3/ul (3.5-10.8)
[2017-10-16 06:35] LABS: EGFR Non-African American 118.4 (>60)
[2017-10-16] MEDS ORDERED: Albuterol/Ipratropium NEB.SOL* Albuterol 2.5 MG/Ipratropium 0.5 MG 3 ML INH PRN (07:21)
--- NOTE | 2017-10-16 08:16 | PN ---
Progress Note - Progress Note Date of Service: 10/16/17 SOAP: Subjective: feels worse for breathing today. feels like she wants to cough junk up but can not get it up. more fatigued today. reports that she has only had LE edema for the last 3 weeks and was started on lasix 2 weeks ago by her primary for this. Objective: Vital Signs Temp Pulse Resp BP Pulse Ox 98.1 F 70 16 108/58 92 10/16/17 03:38 10/16/17 03:38 10/16/17 03:38 10/16/17 03:38 10/16/17 03:38 sitting up in nad perr eomi op moist dec bs left base, rhonchi throughout, no wheeze irregular soft nt +bs 1+ LE edema A+O x 3, grossly nonfocal neurological exam port accessed and clean Laboratory Results - last 24 hr 10/16/17 10/16/17 05:26 05:26 WBC 1.8 L RBC 3.11 L Hgb 8.5 L Hct 26 L MCV 83 MCH 28 MCHC 33 RDW 17 H Plt Count 135 L MPV 8.1 Neut % (Auto) 84.6 H Lymph % (Auto) 7.6 L [place] % (Auto) 6.5 Eos % (Auto) 1.0 Baso % (Auto) 0.3 Absolute Neuts (auto) 1.5 Absolute Lymphs (auto) 0.1 L Absolute Monos (auto) 0.1 Absolute Eos (auto) 0 Absolute Basos (auto) 0 Absolute Nucleated RBC 0 Nucleated RBC % 0.1 Sodium 139 Potassium 3.4 L Chloride 104 Carbon Dioxide 31 Anion Gap 4 BUN 11 Creatinine 0.50 L Est GFR ( Amer) 152.3 Est GFR (Non-Af Amer) 118.4 BUN/Creatinine Ratio 22.0 H Glucose 91 Calcium 8.1 L Magnesium 2.2 Total Bilirubin 0.30 AST 21 ALT 10 Alkaline Phosphatase 85 Total Protein 4.9 L Albumin 2.5 L Globulin 2.4 Albumin/Globulin Ratio 1.0 Acetaminophen (Tylenol Tab*) 650 mg PO Q4H PRN PRN Reason: FEVER/PAIN Albuterol (Ventolin 2.5 Mg/3 Ml Neb.Evelia*) 2.5 mg INH Q2H PRN PRN Reason: SOB/WHEEZING Albuterol/Ipratropium (Duoneb (Albuterol 2.5 Mg/Ipratropium 0.5 Mg)) 1 neb INH Q6H PRN PRN Reason: SOB/CONGESTION Ferrous Gluconate (Fergon Tab*) 324 mg PO QAM [facility] Last Admin: 10/15/17 08:48 Dose: 324 mg Furosemide (Lasix Tab*) 20 mg PO DAILY [facility] Heparin Sodium (Porcine) (Heparin Vial(*)) 5,000 units SUBCUT Q8HR [facility] Last Admin: 10/16/17 05:57 Dose: 5,000 units Heparin Sodium (Porcine) (Heparin Flush(*)) 5 ml IV FLUSH DAILY [facility] PRN Reason: Protocol Last Admin: 10/15/17 08:43 Dose: Not Given Ceftriaxone Sodium 1 gm/ (Sodium Chloride) 50 mls @ 200 mls/hr IVPB Q24H [facility] Last Admin: 10/16/17 02:37 Dose: 200 mls/hr Azithromycin 500 mg/ Sodium (Chloride) 250 mls @ 250 mls/hr IVPB Q24H [facility] Last Admin: 10/16/17 03:12 Dose: 250 mls/hr Potassium Chloride (Potassium Chloride 20 Meq/100 Ml Ivpremix*) 20 meq in 100 mls @ 50 mls/hr IV Q2H [facility] Stop: 10/16/17 12:59 Metoprolol Tartrate (Lopressor Tab*) 50 mg PO QAM [facility] Ondansetron HCl (Zofran 40 Mg Vial*) 4 mg IV Q6H PRN PRN Reason: NAUSEA Potassium Chloride (Klor Con Er Tab*) 20 meq PO DAILY [facility] Assessment: 81 yo F w locally advanced esophageal CA on combined modality therapy (Carbo/ taxol/RT) presenting with cough and chills and found to have a LLL PNA. Clinically she reports feeling worse today. Her CXR on my read looks like an increasing LLL effusion. We have been holding her diuretics which were recently started for new onset LE edema by her primary. Plan: PNA: cont ceftriaxone/azithro lung less wheezy with PRN nebs LE edema: ?new heart failure check BNP add back lasix PO with soft BPs will need to hold norvasc (could also be contributing to LE edema ) and decrease metoprolol echocardiogram to assess EF Hypokalemia: poor PO intake and [place] chemotherapy. will likely get worse with addition of lasix so will replete IV and PO today low albumin: check prealbumin, likely related to poor PO intake from cancer but could also be contributing to above edema pancytopenia: chemotherapy related and appropriate for timing heparin sc DVT prophylaxis, hold if plts <50 anticipate patient will be here through weekend unless she feels dramatically better tomorrow
--- NOTE | 2017-10-16 08:21 | RAD ---
HISTORY: Cough COMPARISONS: October 14, 2017 VIEWS: 4: Frontal dual-energy and lateral views of the chest. FINDINGS: CARDIOMEDIASTINAL SILHOUETTE: The aorta is tortuous. The cardiac silhouette is mildly enlarged. This is stable.. BLAISE: The blaise are normal. PLEURA: There is blunting of left costophrenic angle. LUNG PARENCHYMA: There is hyperinflation with flattening of the diaphragm and expansion of the AP diameter of the chest. ABDOMEN: The upper abdomen is clear. There is no subphrenic gas. BONES AND SOFT TISSUES: Degenerative changes are noted. OTHER: A right-sided chest port is noted with the tip overlying the cavoatrial junction. IMPRESSION: 1. COPD. 2. SMALL LEFT PLEURAL EFFUSION.
[2017-10-16] MEDS: Metoprolol Tartrate TAB* 50 mg PO SCH (08:56)
[2017-10-16] MEDS: Ferrous Gluconate TAB* 324 MG TAB PO SCH (08:56)
[2017-10-16] MEDS: Potassium Chlor TAB* 20 MEQ TAB.ER PO SCH (08:56)
[2017-10-16] MEDS: Furosemide TAB* 20 MG PO SCH (08:56)
[2017-10-16] MEDS: KCL 20 MEQ/100 ML IVPREMIX* 20 MEQ/100 ML BAG IV SCH ×2 (09:01→11:25)
[2017-10-17] MEDS: cefTRIAXone(*) 1 GM in NS 0.9% 50 ML* 50 ML IVPB SCH (02:03)
[2017-10-17] MEDS: Azithromycin IV(*) 500 MG in NS 0.9% 250 ML* 250 ML IVPB SCH (02:50)
[2017-10-17] MEDS: Heparin VIAL(*) 5000 UNITS/ML VIAL (FIVE THOUSAND) SUBCUT SCH ×3 (05:39→21:23)
[2017-10-17 06:15] LABS: ABS Basophils 0 10^3/ul (0-0.2); ABS Eosinophils 0 10^3/ul (0-0.6); ABS Lymphocytes 0.2 10^3/ul (1.0-4.8); ABS Monocytes 0.1 10^3/ul (0-0.8); ABS Neutrophils 1.2 10^3/ul (1.5-7.7); ABS Nucleated RBC 0 10^3/ul; Eosinophil % 1.8 % (0-6); Hematocrit 26 % (35-47); Hemoglobin 8.3 g/dl (12.0-16.0); Lymphocyte % 11.4 % (25-47); Mean Corpuscular HGB Conc 32 g/dl (31-36); Mean Corpuscular Hemoglobin 27 pg (27-31); Mean Corpuscular Volume 84 fL (80-97); Nucleated Red Blood Cells % 0.1; Platelet Count 143 10^3/ul (150-450); Red Blood Count 3.08 10^6/ul (4.0-5.4); Red Cell Distribution Width 17 % (10.5-15); White Blood Count 1.5 10^3/ul (3.5-10.8)
[2017-10-17 06:33] LABS: EGFR Non-African American 121.2 (>60)
[2017-10-17] MEDS: Furosemide TAB* 20 MG PO SCH (08:14)
[2017-10-17] MEDS: Potassium Chlor TAB* 20 MEQ TAB.ER PO SCH ×2 (08:14→19:24)
[2017-10-17] MEDS: Ferrous Gluconate TAB* 324 MG TAB PO SCH (08:14)
[2017-10-17] MEDS: Metoprolol Tartrate TAB* 50 mg PO SCH (08:14)
[2017-10-17] MEDS ORDERED: Perflutren Lipid Microsphere* 3 ML VIAL ONE (10:58)
--- NOTE | 2017-10-17 13:29 | ECHO ---
Patient: ASUNCION FLORES [facility] Rec#: [id number] : 1935 Date: 10/17/2017 Age: 81y Height: 152.4 cm / 60.0 in Weight: 63.5 kg / 140.0 lbs Sex: F BSA: 1.6 Room#: 401 Admit Date#: 10/15/2017 Type: Inpatient Referring: Franc DELACRUZ,Krysten Crawford Reading: Kathia Burden MD Right Of Way Cutter: Jessica Shetty RDCS,RDMS CC: Chandrika Browne MD Transthoracic Echocardiogram Indication: EDEMA BP: 120/66 HR: 62 Rhythm: NSR Findings History: Esophageal cancer, chemotherapy, radiation, HTN. Technical Comments: The study quality is good. Left Ventricle: The left ventricular chamber size is normal. Moderate concentric left ventricular hypertrophy is observed. There is a prominent septal knuckle. Global left ventricular wall motion and contractility are within normal limits. The estimated ejection fraction is 55-60%. Abnormal left ventricular diastolic filling is observed, consistent with impaired relaxation. Left Atrium: The left atrium is severely dilated. Right Ventricle: The right ventricular chamber size and systolic function are within normal limits. Right Atrium: The right atrium is moderately dilated. Aortic Valve: The aortic valve leaflets are mildly thickened. There is aortic annular calcification. There is moderate aortic regurgitation. There is mild to moderate aortic stenosis. Mitral Valve: Moderate mitral annular calcification present. The mitral valve leaflets are mildly thickened. There is mild mitral regurgitation. There is mild mitral stenosis. The mitral valve area, by pressure half time, is calculated at 2.4 cm2. Tricuspid Valve: The tricuspid valve leaflets are normal. There is moderate tricuspid regurgitation. There is evidence of mild pulmonary hypertension. Pulmonic Valve: The pulmonic valve structure is not well visualized. Pericardium: There is no significant pericardial effusion. Aorta: There is no dilatation of the ascending aorta. There is no dilatation of the aortic arch. There is mild dilatation of the aortic root. There is plaque visualized in the ascending aorta. There is evidence of grade 4 (atheroma Greater Than 5mm) atheroma in the ascending aorta. Pulmonary Artery: The main pulmonary artery is not well visualized. Venous: The inferior vena cava appears normal in size. There is a greater than 50% respiratory change in the inferior vena cava dimension. Summary: There are changes noted when compared to the previous study done on 05/23/2014, there is borderline increase of from mild then. Atheromatous plaque in the descending aorta is newly mentioned now. Conclusions The left ventricular chamber size is normal. Moderate concentric left ventricular hypertrophy is observed. There is a prominent septal knuckle. The estimated ejection fraction is 55-60%. Abnormal left ventricular diastolic filling is observed, consistent with impaired relaxation. The left atrium is severely dilated. The right atrium is moderately dilated. There is moderate aortic regurgitation. There is mild to moderate aortic stenosis. There is mild mitral regurgitation. There is mild mitral stenosis. There is moderate tricuspid regurgitation. There is evidence of mild pulmonary hypertension. There is mild dilatation of the aortic root. There is evidence of grade 4 (atheroma Greater Than 5mm) atheroma in the ascending aorta. Measurements Name Value Normal Range RVIDd (AP) 2D 2.2 cm (0.9 - 2.6) RVDdMajor (2D) 2.9 cm (2.2 - 4.4) RAd ISD 4CH 5.6 cm (3.4 - 4.9) RA (A4C)W 4.7 cm (2.9 - 4.6) IVSd (2D) 1.4 cm (0.6 - 1) LVPWd (2D) 1.4 cm (0.6 - 1) LVIDd (2D) 3.9 cm (3.6 - 5.4) LVIDs (2D) 2.7 cm - LV FS (2D) 31 % (25 - 45) Aortic Annulus 2.4 cm (1.4 - 2.6) Ao root diameter (2D) 4.1 cm (2.1 - 3.5) Ascending Ao 3.3 cm (2.1 - 3.4) Aortic arch 2.8 cm (1.8 - 3.4) LA dimension (AP) 2D 3.8 cm (2.3 - 3.8) LAd ISD 4CH 7 cm (2.9 - 5.3) LA ISD 4CH W 5.6 cm (2.5 - 4.5) Name Value Normal Range LA ESV SP 4CH (A/L) 133.45 ml - LA ESV SP 2CH (A/L) 119.18 ml - LA ESV BP (A/L) 126.16 ml - LA ESV BP (A/L) index 78 ml/m2 - LA ESV SP 4CH (MOD) 125.33 ml - LA ESV SP 2CH (MOD) 110.65 ml - Name Value Normal Range MV E-wave Vmax 0.7 m/sec - MV deceleration time 293 msec - MV A-wave Vmax 1.3 m/sec - MV E:A ratio 0.5 ratio - P. vein S-wave Vmax 0.5 m/sec - P. vein D-wave Vmax 0.4 m/sec - P. vein S:D Vmax ratio 1.4 ratio - P. vein A-wave duration 76.1 msec - LV septal e' Vmax 0.04 m/sec - LV lateral e' Vmax 0.05 m/sec - LV E:e' septal ratio 17.5 ratio - LV E:e' lateral ratio 14 ratio - Name Value Normal Range AV Vmax 2.9 m/sec - AV VTI 69.5 cm - AV peak gradient 34 mmHg - AV mean gradient 19 mmHg - LVOT diameter 2.1 cm - LVOT Vmax 1.2 m/sec - LVOT VTI 31 cm - LVOT peak gradient 6 mmHg - LVOT mean gradient 2.8 mmHg - DOI (VTI) 0.4 ratio - WAYNE (continuity Vmax) 1.4 cm2 - WAYNE (continuity VTI) 1.5 cm2 - AR PHT 490 msec - AR peak gradient 87 mmHg - Name Value Normal Range MV Vmax 1.5 m/sec - MV VTI 47.3 cm - MV peak gradient 9 mmHg - MV mean gradient 2.5 mmHg - MV PHT 90 msec - MVA (PHT) 2.4 cm2 - MVA (continuity VTI) 2.3 cm2 - Name Value Normal Range TR Vmax 2.7 m/sec - TR peak gradient 29 mmHg - RAP 8 mmHg - RVSP 37 mmHg - IVC diameter 1.6 cm - Name Value Normal Range PV Vmax 0.8 m/sec - PV peak gradient 2.6 mmHg -
--- NOTE | 2017-10-17 16:59 | PN ---
Subjective Date of Service: 10/17/17 Interval History: Feels much better today. Reports frequent urination after receiving lasix, but breathing and swelling are much better. She is visiting with her center medical director. No pain. She has been up and walking around without difficulty. Objective Active Medications: Acetaminophen (Tylenol Tab*) 650 mg PO Q4H PRN PRN Reason: FEVER/PAIN Albuterol (Ventolin 2.5 Mg/3 Ml Neb.Evelia*) 2.5 mg INH Q2H PRN PRN Reason: SOB/WHEEZING Albuterol/Ipratropium (Duoneb (Albuterol 2.5 Mg/Ipratropium 0.5 Mg)) 1 neb INH Q6H PRN PRN Reason: SOB/CONGESTION Ferrous Gluconate (Fergon Tab*) 324 mg PO QAM [facility] Last Admin: 10/17/17 08:14 Dose: 324 mg Furosemide (Lasix Tab*) 20 mg PO DAILY [facility] Last Admin: 10/17/17 08:14 Dose: 20 mg Heparin Sodium (Porcine) (Heparin Vial(*)) 5,000 units SUBCUT Q8HR [facility] Last Admin: 10/17/17 13:48 Dose: 5,000 units Heparin Sodium (Porcine) (Heparin Flush(*)) 5 ml IV FLUSH DAILY [facility] PRN Reason: Protocol Last Admin: 10/17/17 08:14 Dose: 5 ml Ceftriaxone Sodium 1 gm/ (Sodium Chloride) 50 mls @ 200 mls/hr IVPB Q24H [facility] Last Admin: 10/17/17 02:03 Dose: 200 mls/hr Azithromycin 500 mg/ Sodium (Chloride) 250 mls @ 250 mls/hr IVPB Q24H [facility] Last Admin: 10/17/17 02:50 Dose: 250 mls/hr Metoprolol Tartrate (Lopressor Tab*) 50 mg PO QAM [facility] Last Admin: 10/17/17 08:14 Dose: 50 mg Ondansetron HCl (Zofran 40 Mg Vial*) 4 mg IV Q6H PRN PRN Reason: NAUSEA Potassium Chloride (Klor Con Er Tab*) 20 meq PO DAILY [facility] Last Admin: 10/17/17 08:14 Dose: 20 meq Vital Signs - 8 hr 10/17/17 10/17/17 11:08 15:03 Temperature 97.3 F 98.2 F Pulse Rate 66 71 Respiratory 16 18 Rate Blood Pressure 118/49 110/76 (mmHg) O2 Sat by Pulse 96 96 Oximetry Oxygen Devices in Use Now: None Appearance: alert, sitting up in bed, well appearing Eyes: No Scleral Icterus Ears/Nose/Mouth/Throat: NL Teeth, Lips, Gums Neck: - - right chest wall port clean Respiratory: Symmetrical Chest Expansion and Respiratory Effort, Clear to Auscultation Cardiovascular: - - systolic murmur RUSB Abdominal: NL Sounds; No Tenderness; No Distention Lymphatic: No Cervical Adenopathy Extremities: - - 1+ edema Skin: No Rash or Ulcers Neurological: Alert and Oriented x 3 Result Diagrams: 10/17/17 05:45 10/17/17 05:45 Microbiology and Other Data: Microbiology 10/15/17 01:15 Aerobic Blood Culture - Preliminary Blood Venous No Growth Day 2 Anaerobic Blood Culture - Preliminary No Growth Day 2 10/15/17 01:12 Aerobic Blood Culture - Preliminary Blood Venous No Growth Day 2 Anaerobic Blood Culture - Preliminary No Growth Day 2 Assess/Plan/Problems-Billing Assessment: 81 yo female undergoing xrt/chemo for esophageal cancer admitted with a fall and found to have pneumonia. - Patient Problems (1) Pneumonia Current Visit: Yes Status: Acute Code(s): J18.9 - PNEUMONIA, UNSPECIFIED ORGANISM SNOMED Code(s): 351667722 Comment: no sputum for culture, legionella and s pneumo ag negative; ceftriaxone/zithromax day 3 (2) Acute on chronic diastolic heart failure Current Visit: Yes Status: Acute Code(s): I50.33 - ACUTE ON CHRONIC DIASTOLIC (CONGESTIVE) HEART FAILURE SNOMED Code(s): 815605048 Comment: clinically responding well to lasix 20mg po daily I/O not accurate check weight tomorrow morning and recheck lytes (3) Esophageal carcinoma Current Visit: No Status: Acute Code(s): C15.9 - MALIGNANT NEOPLASM OF ESOPHAGUS, UNSPECIFIED SNOMED Code(s): 982986311 Comment: getting carboplatin/taxol scheduled for xrt wednesday (4) Hypertension Current Visit: No Status: Chronic Priority: Low Code(s): I10 - ESSENTIAL ( PRIMARY) HYPERTENSION SNOMED Code(s): 56809557 Comment: normotensive off anti-hypertensives
[2017-10-17] MEDS: Magnesium Oxide TAB* 400 MG PO SCH (19:24)
[2017-10-18] MEDS: cefTRIAXone(*) 1 GM in NS 0.9% 50 ML* 50 ML IVPB SCH (01:36)
[2017-10-18] MEDS: Azithromycin IV(*) 500 MG in NS 0.9% 250 ML* 250 ML IVPB SCH (02:05)
[2017-10-18 05:39] LABS: ABS Basophils 0 10^3/ul (0-0.2); ABS Eosinophils 0 10^3/ul (0-0.6); ABS Lymphocytes 0.2 10^3/ul (1.0-4.8); ABS Monocytes 0.2 10^3/ul (0-0.8); ABS Neutrophils 1.2 10^3/ul (1.5-7.7); ABS Nucleated RBC 0 10^3/ul; Eosinophil % 1.7 % (0-6); Hematocrit 26 % (35-47); Hemoglobin 8.6 g/dl (12.0-16.0); Lymphocyte % 13.8 % (25-47); Mean Corpuscular HGB Conc 32 g/dl (31-36); Mean Corpuscular Hemoglobin 27 pg (27-31); Mean Corpuscular Volume 84 fL (80-97); Nucleated Red Blood Cells % 0.3; Platelet Count 159 10^3/ul (150-450); Red Blood Count 3.16 10^6/ul (4.0-5.4); Red Cell Distribution Width 17 % (10.5-15); White Blood Count 1.6 10^3/ul (3.5-10.8)
[2017-10-18 05:51] LABS: EGFR Non-African American 121.2 (>60)
[2017-10-18] MEDS: Heparin VIAL(*) 5000 UNITS/ML VIAL (FIVE THOUSAND) SUBCUT SCH (06:09)
[2017-10-18 08:03] VITALS: BP 141/60
--- NOTE | 2017-10-18 08:05 | DS ---
- Discharge Summary ADMIT DATE: 10/15/2017 DISCHARGE DATE: 10/18/2017 DISCHARGE DIAGNOSES: 1. community acquired pneumonia 2. locally advanced esophageal CA on chemoRT 3. hypokalemia, related to poor PO intake and chemotherapy 4. severe protein calorie malnutrition, related to cancer, encouraged PO intake DISCHARGE FOLLOW UP: 1. RT and chemo as planned tomorrow 10/19 will check potassium levels DISCHARGE MEDICATIONS: Home Medications Medication Instructions Recorded Confirmed Type Metoprolol Tartrate TAB* 100 mg PO QAM 05/23/14 10/15/17 History [Lopressor TAB*] Furosemide TAB* [Lasix TAB*] 20 mg PO 1200 07/28/17 10/15/17 History Acetaminophen [Tylenol Extra 500 mg PO QAM 08/16/17 10/15/17 History Strength] Cholecalciferol TAB* [Vitamin D 400 unit PO QAM 08/16/17 10/15/17 History TAB*] Ferrous Gluconate TAB* [Fergon 324 mg PO QAM 08/16/17 10/15/17 History TAB*] Losartan Potassium 100 mg PO QAM 08/16/17 10/15/17 History Vit A and D3 in Cod Liver Oil [Cod 1 each PO SEE INSTRUCTIONS 08/16/17 10/15/17 History Liver Oil Softgel] Naproxen Sodium [Naproxen 220 mg] 220 mg PO BID 09/17/17 10/15/17 History Ibuprofen 400 mg PO BID 09/21/17 10/15/17 History Levofloxacin TAB* [Levaquin TAB*] 500 mg PO DAILY #6 tab 10/18/17 Rx Magnesium Oxide TAB* [MagOx 400 400 mg PO DAILY #30 tab 10/18/17 Rx TAB*] Potassium Chlor TAB* [Potassium 20 meq PO BID #60 tab.er 10/18/17 Rx Chlor TAB 20 MEQ*] STOP [facility] COURSE: Elsy was admitted and started on IV antibiotics for her pneumonia. Her lasix was initially held. On Wednesday she felt worse than admission. Nebulizers were administered and her lasix was resumed as she was felt to be fluid overloaded. I did decrease her metoprolol (resumed on discharge) and stopped her norvasc for relative hypotension. She feels markedly better today and will be discharged to complete a 10 day course of antibiotics. She will have treatment tomorrow if her ANC >1.0. I did add magnesium and potassium to her regimen as she was having intermittent short runs of ventricular tachycardia that were asymptomatic. >30mins spent, >50% inface to face consultation
[2017-10-18] MEDS ORDERED: Metoprolol Tartrate TAB* 100 MG TAB PO SCH (09:00)
[2017-10-18] MEDS: Ferrous Gluconate TAB* 324 MG TAB PO SCH (09:03)
[2017-10-18] MEDS: Magnesium Oxide TAB* 400 MG PO SCH (09:03)
[2017-10-18] MEDS: Potassium Chlor TAB* 20 MEQ TAB.ER PO SCH (09:04)
[2017-10-18] MEDS: Furosemide TAB* 20 MG PO SCH (09:04)
== END 2017-10-18 12:30 | disposition home or self-care (01) | DRG 193 ==
LOC: ED 21:17 → MED 10-15 01:01
PROVIDERS: ADMIT Hospitalist; ATTEND Internal Medicine Hematology & Oncology
DX: J18.9 Pneumonia, unspecified organism (principal); D61.810 Antineoplastic chemotherapy induced pancytopenia; I50.33 Acute on chronic diastolic (congestive) heart failure; E43 Unspecified severe protein-calorie malnutrition; C15.9 Malignant neoplasm of esophagus, unspecified; I47.2 Ventricular tachycardia; I95.9 Hypotension, unspecified; E78.00 Pure hypercholesterolemia, unspecified; K21.9 Gastro-esophageal reflux disease without esophagitis; M19.90 Unspecified osteoarthritis, unspecified site; G43.909 Migraine, unspecified, not intractable, without status migrainosus; F32.9 Major depressive disorder, single episode, unspecified; Z96.641 Presence of right artificial hip joint; K44.9 Diaphragmatic hernia without obstruction or gangrene; E87.6 Hypokalemia; T45.1X5A Adverse effect of antineoplastic and immunosuppressive drugs, initial encounter; I11.0 Hypertensive heart disease with heart failure; Z88.8 Allergy status to other drugs, medicaments and biological substances; Z87.442 Personal history of urinary calculi; Z82.49 Family history of ischemic heart disease and other diseases of the circulatory system; Z90.710 Acquired absence of both cervix and uterus; Z80.3 Family history of malignant neoplasm of breast; Y92.009 Unspecified place in unspecified non-institutional (private) residence as the place of occurrence of the external cause; Z68.26 Body mass index [BMI] 26.0-26.9, adult
CPT/HCPCS: 36415; 36591; 70450; 71045; 71046; 71275; 80048; 80053; 81003; 81015; 82550; 83605; 83690; 83735; 83880; 84134; 85025; 85610; 85730; 86140; 87040; 87086; 87899; 93005; 93306; 94640; 96375; 96413; 96415; 99212; 99232; 99239; 99285; A9270-GY; G0463; G8978-GP-CJ; G8979-GP-CI; J0456; J0696; J1100; J1200; J1642; J1644; J2469; J3475; J3480; J9045; J9267; Q9967

== ENCOUNTER 2018-02-10 19:48 | Emergency (ER) | payer MEDICARE ==
--- NOTE | 2018-02-10 22:27 | RAD ---
EXAM: US Duplex Right Upper Extremity Veins CLINICAL HISTORY: 82 years old, female; Signs and symptoms; Swelling of limb; Upper extremity, right; Additional info: Swelling, has port r chest, suspect dvt rue TECHNIQUE: Real-time duplex ultrasound scan of the right upper extremity veins integrating B-mode two-dimensional vascular structure, Doppler spectral analysis, color flow Doppler imaging and compression. COMPARISON: No relevant prior studies available. FINDINGS: Deep veins: Normal. No DVT in the internal jugular, subclavian, axillary, or brachial veins. The veins demonstrate normal color flow, are normally compressible, with normal phasic flow and/or augmentation response. Superficial veins: Normal. No thrombus in the visualized basilic and cephalic veins. Soft tissues: Normal. IMPRESSION: Normal right upper extremity duplex venous ultrasound.
--- NOTE | 2018-02-11 00:15 | ED ---
Upper Extremity Pain - HPI Summary HPI Summary: This pt is an 82 y/o female presenting to [facility] c/o venous engorgement on right arm since this afternoon. Pt has hx of esophageal CA and she has a port on her right upper extremity for chemo. She is followed up by Dr. Carolina, oncologist, and states she has a upcoming appointment tomorrow with him. Pt notes pain on right arm only with palpation, otherwise no pain. Denies any other pain, chest pain, abd pain, fever, chills. Denies trauma or injury to RUE. Per RN report, port was last accessed 10/2017 and flushed x 1 month ago. - History of Current Complaint Chief Complaint: EDGeneral Stated Complaint: PORT PROBLEM Hx Obtained From: Patient Mechanism Of Injury: Other - no trauma Onset/Duration: Started Hours Ago, Still Present Timing: Lasting Hours Severity Currently: None Pain Location: Arm - right Aggravating Factor(s): Nothing Alleviating Factor(s): Nothing Associated Signs & Symptoms: Negative: Redness, Bruising, Fever, Chest Pain, Neck Pain, Nausea, Vomiting - Allergies/Home Medications Allergies/Adverse Reactions: Allergies Allergy/AdvReac Type Severity Reaction Status Date / Time pantoprazole Allergy Severe SKIN Verified 02/10/18 20:06 PEELED RIGHT OFF atorvastatin [From Lipitor] Allergy Intermediate Rash Verified 02/10/18 20:06 PMH/Surg Hx/FS Hx/Imm Hx Endocrine/Hematology History: Reports: Hx Anemia - IRON Denies: Hx Diabetes, Hx Thyroid Disease Cardiovascular History: Reports: Hx Hypercholesterolemia, Hx Hypertension - CONTROLLED WITH MEDS Comment Only: 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 Respiratory History: Denies: Hx Asthma, Hx Chronic Obstructive Pulmonary Disease (COPD) GI History: Reports: Hx Gastroesophageal Reflux Disease, Hx Hiatal Hernia Denies: Hx Gall Bladder Disease History: Reports: Hx Kidney Stones - LAST YEAR Denies: Hx Chronic Renal Failure Musculoskeletal History: Reports: Hx Arthritis - OSTEOARTHRITIS, Hx Back Problems Sensory History: Reports: Hx Contacts or Glasses Denies: Hx Hearing Aid Opthamlomology History: Reports: Hx Contacts or Glasses Neurological History: Denies: Hx CVA, Hx Migraine, Hx Seizures Psychiatric History: Reports: Hx Depression - passing of love ones - Cancer History Cancer Type, Location and Year: ESOPHAGEAL CANCER 2017 Hx Chemotherapy: No - WILL START WEDNESDAY - Surgical History Surgery Procedure, Year, and Place: Uteran Prolapse repair , right total hip Hx Anesthesia Reactions: No Infectious Disease History: No Infectious Disease History: Denies: Traveled Outside the [place] in Last 30 Days - Family History Known Family History: Positive: Hypertension - Social History Alcohol Use: None Substance Use Type: Reports: None Smoking Status (MU): Never Smoked Tobacco Review of Systems Negative: Fever, Chills Negative: Chest Pain Negative: Shortness Of Breath Negative: Abdominal Pain Musculoskeletal: Other - venous engorgement of RUE All Other Systems Reviewed And Are Negative: Yes Physical Exam - Summary Physical Exam Summary: Appearance: Well-appearing, Well-nourished, lying in bed comfortable Skin: Warm, dry, no obvious rash Eyes: sclera anicteric, no conjunctival pallor ENT: mucous membranes moist Neck: deferred Respiratory: No signs of respiratory distress Cardiovascular: Appears well perfused, pulses are nml Abdomen: deferred Musculoskeletal: Moving all 4 extremities without obvious discomfort. RUE: venous engorgement of right upper extremity but no swelling of extremity itself. Neurological: Awake and alert, mentation is normal, speech is fluent and appropriate Psychiatric: affect is normal, does not appear anxious or depressed Triage Information Reviewed: Yes Vital Signs On Initial Exam: Initial Vitals Temp Pulse Resp BP Pulse Ox 97.9 F 60 16 162/66 94 02/10/18 20:00 02/10/18 20:00 02/10/18 20:00 02/10/18 20:00 02/10/18 20:00 Vital Signs Reviewed: Yes Diagnostics - Vital Signs Vital Signs Temp Pulse Resp BP Pulse Ox 02/10/18 22:20 97.0 F 62 16 184/56 97 02/10/18 20:00 97.9 F 60 16 162/66 94 - Laboratory Lab Statement: Any lab studies that have been ordered have been reviewed, and results considered in the medical decision making process. - Additional Comments Diagnostic Additional Comments: Venous Doppler Study, right upper extremity as read by radiologist IMPRESSION: Normal right upper extremity duplex venous ultrasound. Dr. Concepcion has reviewed this report. Course/Dx - Course Course Of Treatment: Pt is an 82 y/o female, with hx of esophageal CA with a port on her RUE, presents to the ED with venous engorgement on right arm. No swelling. Venous doppler study of right upper extremity is negative. Pt will be discharged home with follow up from Dr. Carolina, her oncologist, as scheduled tomorrow. - Diagnoses Provider Diagnoses: Pain, arm, right Discharge - Sign-Out/Discharge Documenting (check all that apply): Patient Departure - Discharge - Discharge Plan Condition: Good Disposition: HOME Referrals: Milton Carolina MD [Medical Doctor] - - Billing Disposition and Condition Condition: GOOD Disposition: Home - Attestation Statements Document Initiated by Anthony: Yes Documenting Scribe: Josselyn Escobar Provider For Whom Anthony is Documenting (Include Credential): Evaristo Concepcion MD Scribe Attestation: Josselyn Marti, scribed for Evaristo Concepcion MD on 02/11/18 at 0331. Scribe Documentation Reviewed: Yes Provider Attestation: The documentation as recorded by the Josselyn pelayo accurately reflects the service I personally performed and the decisions made by me, Evaristo Concepcion MD
[2018-02-11 00:23] VITALS: BP 121/78
== END 2018-02-11 00:22 | disposition home or self-care (01) ==
LOC: ED 19:48
DX: M79.601 Pain in right arm (principal); Z85.01 Personal history of malignant neoplasm of esophagus
CPT/HCPCS: 99281

== ENCOUNTER 2018-08-13 14:48 | Inpatient (IN) | payer OTHER ==
--- NOTE | 2018-08-13 15:28 | ED ---
GI/ HPI - HPI Summary HPI Summary: This patient is an 82 year old F with a PMHx of esophageal cancer presenting to [facility] with a chief complaint of near syncope earlier today. Patient reports difficulty eating, weakness, and mild chest tightness. Patient denies dizziness and SOB. Her oncologists are Dr. Hurley and Dr. Carolina, dedicated local truck driver is Dr. Patiño. She has not been able to take her medications today because she cannot swallow them. - History of Current Complaint Chief Complaint: EDDizziness Time Seen by Provider: 08/13/18 15:04 Stated Complaint: FAINTED IN CAR PER FRIEND Hx Obtained From: Patient Onset/Duration: Started Weeks Ago, Worse Since - Today Timing: Constant Pain Intensity: 0 Associated Signs and Symptoms: Positive: Weakness, Chest Pain - mild. Negative : Dizziness, Other: - SOB - Additional Pertinent History Primary Care Physician: [id number] - Allergy/Home Medications Allergies/Adverse Reactions: Allergies Allergy/AdvReac Type Severity Reaction Status Date / Time pantoprazole Allergy Severe SKIN Verified 08/13/18 14:57 PEELED RIGHT OFF atorvastatin [From Lipitor] Allergy Intermediate Rash Verified 08/13/18 14:57 PMH/Surg Hx/FS Hx/Imm Hx Endocrine/Hematology History: Reports: Hx Anemia - IRON Denies: Hx Diabetes, Hx Thyroid Disease Cardiovascular History: Reports: Hx Hypercholesterolemia, Hx Hypertension - CONTROLLED WITH MEDS Comment Only: 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 Respiratory History: Denies: Hx Asthma, Hx Chronic Obstructive Pulmonary Disease (COPD) GI History: Reports: Hx Gastroesophageal Reflux Disease, Hx Hiatal Hernia Denies: Hx Gall Bladder Disease History: Reports: Hx Kidney Stones - LAST YEAR Denies: Hx Chronic Renal Failure, Hx Renal Disease Musculoskeletal History: Reports: Hx Arthritis - OSTEOARTHRITIS, Hx Back Problems Sensory History: Reports: Hx Contacts or Glasses Denies: Hx Hearing Aid Opthamlomology History: Reports: Hx Contacts or Glasses Neurological History: Denies: Hx CVA, Hx Migraine, Hx Seizures Psychiatric History: Reports: Hx Depression - passing of love ones - Cancer History Cancer Type, Location and Year: ESOPHAGEAL CANCER 2018 Hx Chemotherapy: No - WILL START WEDNESDAY - Surgical History Surgery Procedure, Year, and Place: Uteran Prolapse repair , right total hip Hx Anesthesia Reactions: No Infectious Disease History: No Infectious Disease History: Denies: Traveled Outside the [place] in Last 30 Days - Family History Known Family History: Positive: Hypertension - Social History Alcohol Use: None Substance Use Type: Reports: None Smoking Status (MU): Never Smoked Tobacco Review of Systems Positive: Chest Pain - Mild Negative: Shortness Of Breath Positive: Other - Difficulty eating Neurological: Other - Denies dizziness Positive: Weakness All Other Systems Reviewed And Are Negative: Yes Physical Exam - Summary Physical Exam Summary: GENERAL: Patient is a well-developed and nourished __(F)__ who is lying comfortable in the stretcher. Patient is not in any acute respiratory distress. HEAD AND FACE: Normocephalic EYES: PERRLA, EOMI x 2. EARS: Hearing grossly intact. MOUTH: Oropharynx within normal limits. NECK: Supple, trachea is midline, no adenopathy, no JVD, no carotid bruit. CHEST: Symmetric, no tenderness at palpation LUNGS: Clear to auscultation bilaterally. No wheezing or crackles. CVS: Regular rate and rhythm, S1 and S2 present, no murmurs or gallops appreciated. ABDOMEN: Soft, non-tender. Bowel sounds are normal. No abdominal abnormal pulsations. EXTREMITIES: Full ROM in all major joints, no edema, no cyanosis or clubbing. NEURO: Alert and oriented x 3. No acute neurological deficits. Speech is normal and follows commands. SKIN: Dry and warm Triage Information Reviewed: Yes Vital Signs On Initial Exam: Initial Vitals Temp Pulse Resp BP Pulse Ox 98.2 F 70 14 155/76 100 08/13/18 14:52 08/13/18 14:52 08/13/18 14:52 08/13/18 14:52 08/13/18 14:52 Vital Signs Reviewed: Yes Diagnostics - Vital Signs Vital Signs Temp Pulse Resp BP Pulse Ox 08/13/18 14:52 98.2 F 70 14 155/76 100 - Laboratory Result Diagrams: 08/13/18 15:45 08/13/18 15:45 Lab Statement: Any lab studies that have been ordered have been reviewed, and results considered in the medical decision making process. - Radiology Chest x-ray Radiology Interpretation Completed By: Radiologist Summary of Radiographic Findings: 15:35. 1. COPD. 2. LEFT BASILAR ATELECTASIS VERSUS EARLY CONSOLIDATION. ED Physician has reviewed this imaging report. - EKG 15:24 Cardiac Rate: NL - 70 BPM EKG Rhythm: Sinus Rhythm EKG Comparison: Other - Now has prologned QT, but otherwise similar to previous Summary of EKG Findings: LVH, prolonged QT GIGU Course/Dx - Course Course Of Treatment: This patient is an 82 year old F with a PMHx of esophageal cancer presenting to [facility] with a chief complaint of difficulty eating since a few months ago, worsening today. Physical exam was normal. EKG: normal sinus 70 , LVH, prolonged QT. Aside from prolonged QT, similar to last time. Chest x-ray : 1. COPD. 2. Left basilar atelectasis versus early consolidation. - Physician Notifications Discussed Care Of Patient With: Db Hurley - Radiation Oncology Time Discussed With Above Provider: 16:49 Discharge - Discharge Plan Referrals: Chandrika Browne MD [Primary Care Provider] - - Attestation Statements Document Initiated by Scribe: Yes Documenting Scribe: Toby Long Provider For Whom Scribe is Documenting (Include Credential): Nancy Casas MD Scribe Attestation: Toby Marti, scribed for Nancy Casas MD on 08/13/18 at 1649.
[2018-08-13] MEDS ORDERED: NS 0.9% 1000 ML** 1,000 ML IV ONE (15:44)
[2018-08-13 16:05] LABS: Activated Partial Thrombo Time 58.5 seconds (26.0-36.3); INR 1.02 (0.77-1.02)
[2018-08-13 16:12] LABS: Albumin 3.4 g/dL (3.2-5.2); BUN/Creatinine Ratio 33.3 (8-20); Calcium 9.2 mg/dL (8.6-10.3); EGFR African American 130.8 (>60); EGFR Non-African American 108.1 (>60); Globulin 3.5 g/dL (2-4); Magnesium 2.3 mg/dL (1.9-2.7); Potassium 3.9 mmol/L (3.5-5.0); Total Bilirubin 0.5 mg/dL (0.2-1.0); Total Protein 6.9 g/dL (6.4-8.9)
[2018-08-13 16:14] LABS: Troponin I 0.01 ng/mL (<0.04)
[2018-08-13 16:24] LABS: ABS Basophils 0 10^3/ul (0-0.2); ABS Eosinophils 0 10^3/ul (0-0.6); ABS Lymphocytes 0.5 10^3/ul (1.0-4.8); ABS Monocytes 0.5 10^3/ul (0-0.8); ABS Neutrophils 6.4 10^3/ul (1.5-7.7); ABS Nucleated RBC 0 10^3/ul; Eosinophil % 0.4 %; Hematocrit 29 % (33-41); Hemoglobin 9.7 g/dL (12.0-16.0); Lymphocyte % 6.4 %; Mean Corpuscular HGB Conc 33 g/dL (31-36); Mean Corpuscular Hemoglobin 29 pg (27-31); Mean Corpuscular Volume 87 fL (80-97); Mean Platelet Volume 8.2 fL (7.4-10.4); Nucleated Red Blood Cells % 0; Platelet Count 223 10^3/uL (150-450); Red Blood Count 3.35 10^6 /uL (3.70-4.87); Red Cell Distribution Width 16 % (10.5-15); White Blood Count 7.4 10^3/uL (3.5-10.8)
--- NOTE | 2018-08-13 16:55 | ED ---
Syncope/Near Syncope - HPI Summary HPI Summary: This patient is an 82 year old F with a PMHx of esophageal cancer presenting to [facility] with a chief complaint of near syncope earlier today. Patient denied having the near syncopal episode, but her daughter witnessed the episode. Patient is a poor historian with the daughter correcting her multiple times. Patient reports difficulty eating, weakness, and mild chest tightness. Patient denies dizziness and SOB. Her oncologists are Dr. Hurley and Dr. Carolina, back facer is Dr. Patiño. She has not been able to take her medications today because she cannot swallow them. She has lost 16 pounds since June 2018. - History Of Current Complaint Chief Complaint: EDDizziness Time Seen by Provider: 08/13/18 15:04 Hx Obtained From: Patient Onset/Duration: Sudden Onset, Resolved Context: Witnessed - By daughter Associated Signs And Symptoms: Chest Pain - Mild, Dizzy - Denies, Shortness Of Breath - Denies, Weakness, Other - Difficulty eating - Allergies/Home Medications Allergies/Adverse Reactions: Allergies Allergy/AdvReac Type Severity Reaction Status Date / Time pantoprazole Allergy Severe SKIN Verified 08/13/18 14:57 PEELED RIGHT OFF atorvastatin [From Lipitor] Allergy Intermediate Rash Verified 08/13/18 14:57 PMH/Surg Hx/FS Hx/Imm Hx Endocrine/Hematology History: Reports: Hx Anemia - IRON Denies: Hx Diabetes, Hx Thyroid Disease Cardiovascular History: Reports: Hx Hypercholesterolemia, Hx Hypertension - CONTROLLED WITH MEDS Comment Only: 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 Respiratory History: Denies: Hx Asthma, Hx Chronic Obstructive Pulmonary Disease (COPD) GI History: Reports: Hx Gastroesophageal Reflux Disease, Hx Hiatal Hernia Denies: Hx Gall Bladder Disease History: Reports: Hx Kidney Stones - LAST YEAR Denies: Hx Chronic Renal Failure, Hx Renal Disease Musculoskeletal History: Reports: Hx Arthritis - OSTEOARTHRITIS, Hx Back Problems Sensory History: Reports: Hx Contacts or Glasses Denies: Hx Hearing Aid Opthamlomology History: Reports: Hx Contacts or Glasses Neurological History: Denies: Hx CVA, Hx Migraine, Hx Seizures Psychiatric History: Reports: Hx Depression - passing of love ones - Cancer History Cancer Type, Location and Year: ESOPHAGEAL CANCER 2017 Hx Chemotherapy: No - WILL START WEDNESDAY - Surgical History Surgery Procedure, Year, and Place: Uteran Prolapse repair , right total hip Hx Anesthesia Reactions: No Infectious Disease History: No Infectious Disease History: Denies: Traveled Outside the [place] in Last 30 Days - Family History Known Family History: Positive: Hypertension - Social History Alcohol Use: None Substance Use Type: Reports: None Smoking Status (MU): Never Smoked Tobacco Review of Systems Positive: Chest Pain - Mild Negative: Shortness Of Breath Positive: Other - Difficulty eating Neurological: Other - Near syncopal episode. Denies dizziness Positive: Weakness All Other Systems Reviewed And Are Negative: Yes Physical Exam - Summary Physical Exam Summary: GENERAL: Patient is a well-developed and nourished __(F)__ who is lying comfortable in the stretcher. Patient is not in any acute respiratory distress. HEAD AND FACE: Normocephalic EYES: PERRLA, EOMI x 2. EARS: Hearing grossly intact. MOUTH: Oropharynx within normal limits. NECK: Supple, trachea is midline, no adenopathy, no JVD, no carotid bruit. CHEST: Symmetric, no tenderness at palpation LUNGS: Clear to auscultation bilaterally. No wheezing or crackles. CVS: Regular rate and rhythm, S1 and S2 present, no murmurs or gallops appreciated. ABDOMEN: Soft, non-tender. Bowel sounds are normal. No abdominal abnormal pulsations. EXTREMITIES: Full ROM in all major joints, no edema, no cyanosis or clubbing. NEURO: Alert and oriented x 3. No acute neurological deficits. Speech is normal and follows commands. SKIN: Dry and warm Triage Information Reviewed: Yes Vital Signs On Initial Exam: Initial Vitals Temp Pulse Resp BP Pulse Ox 98.2 F 70 14 155/76 100 08/13/18 14:52 08/13/18 14:52 08/13/18 14:52 08/13/18 14:52 08/13/18 14:52 Vital Signs Reviewed: Yes Diagnostics - Vital Signs Vital Signs Temp Pulse Resp BP Pulse Ox 08/13/18 16:00 77 17 93 08/13/18 15:12 14 08/13/18 14:52 98.2 F 70 14 155/76 100 - Laboratory Lab Results: Lab Results 08/13/18 08/13/18 08/13/18 Range/Units 15:06 15:45 15:45 WBC 7.4 (3.5-10.8) 10^3/uL RBC 3.35 L (3.70-4.87) 10^6 /uL Hgb 9.7 L (12.0-16.0) g/dL Hct 29 L (33-41) % MCV 87 (80-97) fL MCH 29 (27-31) pg MCHC 33 (31-36) g/dL RDW 16 H (10.5-15) % Plt Count 223 (150-450) 10^3/uL MPV 8.2 (7.4-10.4) fL Neut % (Auto) 85.8 % Lymph % (Auto) 6.4 % [place] % (Auto) 7.1 % Eos % (Auto) 0.4 % Baso % (Auto) 0.3 % Absolute Neuts (auto) 6.4 (1.5-7.7) 10^3/ul Absolute Lymphs (auto) 0.5 L (1.0-4.8) 10^3/ul Absolute Monos (auto) 0.5 (0-0.8) 10^3/ul Absolute Eos (auto) 0 (0-0.6) 10^3/ul Absolute Basos (auto) 0 (0-0.2) 10^3/ul Absolute Nucleated RBC 0 10^3/ul Nucleated RBC % 0 INR (Anticoag Therapy) 1.02 (0.77-1.02) APTT 58.5 H (26.0-36.3) seconds Sodium (135-145) mmol/L Potassium (3.5-5.0) mmol/L Chloride (101-111) mmol/L Carbon Dioxide (22-32) mmol/L Anion Gap (2-11) mmol/L BUN (6-24) mg/dL Creatinine (0.51-0.95) mg/dL Est GFR ( Amer) (>60) Est GFR (Non-Af Amer) (>60) BUN/Creatinine Ratio (8-20) Glucose (70-100) mg/dL POC Glucose (mg/dL) 84 (70-100) mg/dL Lactic Acid (0.5-2.0) mmol/L Calcium (8.6-10.3) mg/dL Magnesium (1.9-2.7) mg/dL Total Bilirubin (0.2-1.0) mg/dL AST (13-39) U/L ALT (7-52) U/L Alkaline Phosphatase (34-104) U/L Troponin I (<0.04) ng/mL B-Natriuretic Peptide (<=100) pg/mL Total Protein (6.4-8.9) g/dL Albumin (3.2-5.2) g/dL Globulin (2-4) g/dL Albumin/Globulin Ratio (1-3) 08/13/18 08/13/18 08/13/18 Range/Units 15:45 15:45 15:45 WBC (3.5-10.8) 10^3/uL RBC (3.70-4.87) 10^6 /uL Hgb (12.0-16.0) g/dL Hct (33-41) % MCV (80-97) fL MCH (27-31) pg MCHC (31-36) g/dL RDW (10.5-15) % Plt Count (150-450) 10^3/uL MPV (7.4-10.4) fL Neut % (Auto) % Lymph % (Auto) % [place] % (Auto) % Eos % (Auto) % Baso % (Auto) % Absolute Neuts (auto) (1.5-7.7) 10^3/ul Absolute Lymphs (auto) (1.0-4.8) 10^3/ul Absolute Monos (auto) (0-0.8) 10^3/ul Absolute Eos (auto) (0-0.6) 10^3/ul Absolute Basos (auto) (0-0.2) 10^3/ul Absolute Nucleated RBC 10^3/ul Nucleated RBC % INR (Anticoag Therapy) (0.77-1.02) APTT (26.0-36.3) seconds Sodium 140 (135-145) mmol/L Potassium 3.9 (3.5-5.0) mmol/L Chloride 104 (101-111) mmol/L Carbon Dioxide 29 (22-32) mmol/L Anion Gap 7 (2-11) mmol/L BUN 18 (6-24) mg/dL Creatinine 0.54 (0.51-0.95) mg/dL Est GFR ( Amer) 130.8 (>60) Est GFR (Non-Af Amer) 108.1 (>60) BUN/Creatinine Ratio 33.3 H (8-20) Glucose 95 (70-100) mg/dL POC Glucose (mg/dL) (70-100) mg/dL Lactic Acid 0.5 (0.5-2.0) mmol/L Calcium 9.2 (8.6-10.3) mg/dL Magnesium 2.3 (1.9-2.7) mg/dL Total Bilirubin 0.50 (0.2-1.0) mg/dL AST 16 (13-39) U/L ALT 9 (7-52) U/L Alkaline Phosphatase 122 H (34-104) U/L Troponin I 0.01 (<0.04) ng/mL B-Natriuretic Peptide 177 H (<=100) pg/mL Total Protein 6.9 (6.4-8.9) g/dL Albumin 3.4 (3.2-5.2) g/dL Globulin 3.5 (2-4) g/dL Albumin/Globulin Ratio 1.0 (1-3) Result Diagrams: 08/13/18 15:45 08/13/18 15:45 Lab Statement: Any lab studies that have been ordered have been reviewed, and results considered in the medical decision making process. - Radiology Chest x-ray Radiology Interpretation Completed By: Radiologist Summary of Radiographic Findings: 15:35. 1. COPD. 2. LEFT BASILAR ATELECTASIS VERSUS EARLY CONSOLIDATION. ED Physician has reviewed this imaging report. - EKG 15:24 Cardiac Rate: NL - 70 BPM EKG Rhythm: Sinus Rhythm EKG Comparison: Other - Now has prologned QT, but otherwise similar to previous Summary of EKG Findings: LVH, prolonged QT Course/Dx Course Of Treatment: This patient is an 82 year old F with a PMHx of esophageal cancer presenting to [facility] with a chief complaint of near syncope earlier today. Physical exam was normal. EKG: normal sinus 70, LVH, prolonged QT. Aside from prolonged QT, similar to last time. Chest x-ray: 1. COPD. 2. Left basilar atelectasis versus early consolidation. Lab workup was unremarkable except for RBC 3.35, Hgb 9.7 L, Hct 29 L, RDW 16 H, Absolute Lymphs (auto) 0.5 L , APTT 58.5 H, BUN/Creatinine Ratio 33.3 H, Alkaline Phosphatase 122 H, B- Natriuretic Peptide 177 H. I consulted Bruner of oncology, who advised that I admit the patient. Case discussed with hospitalist. I discussed results with patient. The patient agrees with this plan. - Diagnoses Provider Diagnoses: Near syncope, Dehydration - Physician Notifications Discussed Care of Patient With: Db Hurley - Radiation Oncology Time Discussed With Above Provider: 16:49 Instructed by Provider To: Admit As Inpatient - Patient has lost 16 lbs. since June 2018 Discharge - Sign-Out/Discharge Documenting (check all that apply): Patient Departure - Admit Patient Received Moderate/Deep Sedation with Procedure: No - Discharge Plan Condition: Stable Disposition: ADMITTED TO [facility] Referrals: Chandrika Browne MD [Primary Care Provider] - - Billing Disposition and Condition Condition: STABLE Disposition: Admitted to [facility] - Attestation Statements Document Initiated by Anthony: Yes Documenting Scribe: Toby Long Provider For Whom Adánibe is Documenting (Include Credential): Nancy Casas MD Scribe Attestation: I, Toby Long, scribed for Nancy Casas MD on 08/13/18 at 1804. Scribe Documentation Reviewed: Yes Provider Attestation: The documentation as recorded by the Toby pelayo accurately reflects the service I personally performed and the decisions made by me, Nancy Casas MD Status of Scribe Document: Viewed Consult Consult: 17:03. Discussed the case with Dr. Caicedo, hospitalist, who will accept the patient.
[2018-08-13] MEDS: NS 0.9% 1000 ML** 1,000 ML IV SCH (22:15)
[2018-08-13] MEDS: Heparin VIAL(*) 5000 UNITS/ML VIAL (FIVE THOUSAND) SUBCUT SCH (22:16)
--- NOTE | 2018-08-13 23:54 | HP ---
CC: Dr. Meehan; Dr. Milton Carolina * HISTORY AND PHYSICAL: DATE OF ADMISSION: 08/13/18 PRIMARY CARE PROVIDER: Dr. Meehan. ONCOLOGIST: Dr. Milton Carolina. ATTENDING PHYSICIAN: Dr. Raul Antoine * (dictated by Aniket Reddy NP). CHIEF COMPLAINT: Difficulty swallowing for 3 days. HISTORY OF PRESENT ILLNESS: Ms. Patel is an 82-year-old female with a past medical history significant for esophageal cancer, status post chemotherapy and radiation, hypertension, osteoarthritis, anemia, hyperlipidemia, GERD, hiatal hernia, and depression, who is followed with Oncology for her history of esophageal cancer. She states that she has had chemo and radiation in the past , but is unsure when she last had these. She states that she has been having difficulty swallowing and just not really feeling horrible, but this has steadily become worse over the last 3 days where she has been able to minimally take in food, mainly able to get in liquids and not really able to swallow solids. She states that she has an EGD scheduled for 08/15/18, with Dr. Jose Patiño. She also reports a 16-pound weight loss since June. She denies fevers, chills, chest pain, shortness of breath, nausea, vomiting, diarrhea, abdominal pain, urinary symptoms such as urgency, dysuria, changes in frequency. She denies dizziness or lightheadedness. She states that she has had some intermittent constipation. As far as food, she states that she was unable to swallow apple sauce, able to get Jell-O and water down. Coffee gave her some trouble. She is also able to get Boost and Ensure down, but with some trouble. It has been, as previously mentioned, 3 days since she has been able to get regular food in. She was brought to the emergency room for further evaluation of her symptoms. While in the emergency room, she received 1 L of normal saline. She had labs that were unremarkable with the exception of an elevated alk phos and elevated BNP, and she was noted to be anemic, similar to previous labs, but lower than the most recent labs that she has had. She denies any signs of bleeding. She had a chest x- ray showing left basilar atelectasis versus early consolidation and COPD, and the hospitalists were asked to evaluate her for admission. PAST MEDICAL HISTORY: 1. Esophageal cancer. 2. Hypertension. 3. Osteoarthritis. 4. Anemia. 5. Hyperlipidemia. 6. GERD. 7. Hiatal hernia. 8. Depression. PAST SURGICAL HISTORY: 1. Status post PowerPort placement. 2. Status post eye surgery. 3. Status post right total hip arthroplasty. 4. Status post repair of uterine prolapse. HOME MEDICATIONS: Include: 1. Potassium 20 mEq by mouth twice daily. 2. Magnesium oxide 400 mg by mouth daily. 3. Furosemide 20 mg by mouth daily. 4. Metoprolol tartrate 100 mg by mouth every morning. 5. Ibuprofen 200 mg by mouth every 6 hours as needed for pain. 6. Cod liver oil soft gel, 1 by mouth daily. 7. Losartan 100 mg by mouth every morning. 8. Ferrous gluconate 324 mg by mouth every morning. 9. Vitamin D 400 units by mouth every morning. 10. Acetaminophen 500 mg by mouth every morning. ALLERGIES: 1. PANTOPRAZOLE. 2. ATORVASTATIN. FAMILY HISTORY: Father with a history of [place]. Son and granddaughter with a history of type 1 diabetes mellitus. Mother with a history of breast cancer. SOCIAL HISTORY: Denies tobacco, alcohol or recreational drug use. Her friend, Db Flood, will be her surrogate decision maker in the event she is unable to make decisions for herself. REVIEW OF SYSTEMS: I performed a 10-point review of systems. All the pertinent positives and negatives are mentioned in the history of present illness. The remaining review of systems are negative. PHYSICAL EXAMINATION GENERAL APPEARANCE: The patient is alert, pleasant, appears to be in no acute distress. HEENT: Normocephalic, atraumatic. Pupils are equal and reactive to light. Extraocular movements are intact. RESPIRATORY: No accessory muscle use. Lungs are clear to auscultation bilaterally. CARDIOVASCULAR: Regular rate and rhythm. S1 and S2 present. No murmurs, rubs or gallops heard. ABDOMEN: Soft, nontender, nondistended. Bowel sounds present x4. EXTREMITIES: No lower extremity edema. DP and PT pulses are 1+ and symmetric. MUSCULOSKELETAL: No clubbing or cyanosis noted. The patient exhibits good strength in all extremities. NEUROLOGIC: Alert and oriented x4. Cranial nerves II through XII are grossly intact. PSYCHOLOGICAL: Calm and cooperative. SKIN: No rashes or abnormalities seen. DIAGNOSTIC STUDIES/LABORATORY DATA: Sodium 140, potassium 3.9, chloride 104, CO2 of 29, BUN 18, creatinine 0.54, glucose 95. White blood cell count 7.4, hemoglobin 9.7, hematocrit 28, platelet count 223. Alk phos 122, BNP 177. EKG shows sinus rhythm at a rate of 70. There are no signs of acute ischemia. This EKG is similar to her previous from 10/16/17. Chest x-ray from today. Radiologist's impression: COPD with basilar atelectasis versus early consolidation. IMPRESSION: Ms. Patel is an 82-year-old female with a past medical history significant for esophageal cancer, status post chemotherapy and radiation therapy, hypertension, osteoarthritis, anemia, hyperlipidemia, gastroesophageal reflux disease, hiatal hernia and depression, who presented to the emergency room with complaints of difficulty swallowing. She will be admitted as an observation for dysphagia. ASSESSMENT/PLAN: 1. Dysphagia: I question if this is secondary to advancement of her esophageal cancer or an esophageal stricture. She is currently scheduled for an esophagogastroduodenoscopy as outpatient with Dr. Patiño on Wednesday. I will place her on a full liquid diet and not solid foods as she is reporting difficulty swallowing solid foods. I will defer further management of this to the oncology service. We will give her some gentle IV hydration. I discussed with the patient if she is taking lot of nonsteroidal antiinflammatory drugs, and she denies. She states that she takes ibuprofen once daily. She is not on aspirin and states that she is no longer taking naproxen. 2. Esophageal cancer: Management per Oncology and radiation oncologist. 3. Hypertension: Continue her losartan. 4. Anemia: The patient has acute on chronic anemia. She denies dark stool. She denies significant nonsteroidal antiinflammatory drug use. She states she just takes ibuprofen once daily. We will recheck her labs in the morning. We will continue her ferrous gluconate. She is able to swallow this. 5. Osteoarthritis: She can take acetaminophen as needed for pain. 6. Gastroesophageal reflux disease: She has no complaints at this time and is not currently on a maintenance medication. 7. Depression: Mood is stable, not currently on medications. 8. Fluid, electrolytes, and nutrition: 9. Code Status: Full code. 10. Deep venous thrombosis prophylaxis: She is at high risk. She will have subcutaneous heparin. 11. Disposition: Observation. TIME SPENT: Time for this admission was approximately 60 minutes, greater than half of that was spent with the patient discussing medications, past medical history, the events leading to her arrival today, and performing a physical examination. The case has been discussed with the attending, Dr. Raul Antoine, who agrees with the plan of care. ANIKET REDDY, JUDAH [id number]/[facility] #: [id number] ANGELITO
[2018-08-14] MEDS ORDERED: Acetaminophen TAB* 325 MG PO PRN (04:16)
[2018-08-14] MEDS: Heparin VIAL(*) 5000 UNITS/ML VIAL (FIVE THOUSAND) SUBCUT SCH ×3 (05:33→22:32)
[2018-08-14 05:52] LABS: ABS Basophils 0 10^3/ul (0-0.2); ABS Eosinophils 0.1 10^3/ul (0-0.6); ABS Lymphocytes 0.4 10^3/ul (1.0-4.8); ABS Monocytes 0.5 10^3/ul (0-0.8); ABS Neutrophils 6.3 10^3/ul (1.5-7.7); ABS Nucleated RBC 0 10^3/ul; Eosinophil % 0.8 %; Hematocrit 27 % (33-41); Hemoglobin 8.8 g/dL (12.0-16.0); Lymphocyte % 5.8 %; Mean Corpuscular HGB Conc 33 g/dL (31-36); Mean Corpuscular Hemoglobin 29 pg (27-31); Mean Corpuscular Volume 87 fL (80-97); Nucleated Red Blood Cells % 0; Platelet Count 200 10^3/uL (150-450); Red Blood Count 3.07 10^6 /uL (3.70-4.87); Red Cell Distribution Width 16 % (10.5-15); White Blood Count 7.3 10^3/uL (3.5-10.8)
[2018-08-14 06:10] LABS: BUN/Creatinine Ratio 31.3 (8-20); Calcium 8.6 mg/dL (8.6-10.3); EGFR African American 149.8 (>60); EGFR Non-African American 123.8 (>60); Potassium 3.6 mmol/L (3.5-5.0)
[2018-08-14] MEDS ORDERED: Ferrous Gluconate TAB* 324 MG TAB PO SCH (09:00)
[2018-08-14] MEDS: NS 0.9% 1000 ML** 1,000 ML IV SCH (11:59)
--- NOTE | 2018-08-14 13:02 | PN ---
Subjective Date of Service: 08/14/18 Interval History: Patient reports she feels better than yesterday stating she is doing better on the full liquids. Per nurse she did well with ice cream and her meds this am. Still feels some discomfort when eating/drinking Objective Active Medications: Acetaminophen (Tylenol Tab*) 650 mg PO Q4H PRN PRN Reason: FEVER/HEADACHE Last Admin: 08/14/18 05:32 Dose: 650 mg Ferrous Gluconate (Fergon Tab*) 324 mg PO QAM [facility] Last Admin: 08/14/18 09:30 Dose: 324 mg Heparin Sodium (Porcine) (Heparin Vial(*)) 5,000 units SUBCUT Q8HR [facility] Last Admin: 08/14/18 05:33 Dose: 5,000 units Sodium Chloride (Ns 0.9% 1000 Ml) 1,000 mls @ 75 mls/hr IV PER RATE [facility] Last Admin: 08/14/18 11:59 Dose: 75 mls/hr Vital Signs - 8 hr 08/14/18 08/14/18 08/14/18 05:57 05:59 06:01 Temperature Pulse Rate 77 79 78 Respiratory Rate Blood Pressure 152/64 132/66 139/61 (mmHg) O2 Sat by Pulse Oximetry 08/14/18 08/14/18 08/14/18 07:15 08:00 09:36 Temperature 98 F Pulse Rate 68 Respiratory 16 16 Rate Blood Pressure 128/59 (mmHg) O2 Sat by Pulse 96 Oximetry Oxygen Devices in Use Now: None Result Diagrams: 08/14/18 05:40 08/14/18 05:40 Additional Lab and Data: Lab Results 08/13/18 08/13/18 08/13/18 Range/Units 15:06 15:45 15:45 WBC 7.4 (3.5-10.8) 10^3/uL RBC 3.35 L (3.70-4.87) 10^6 /uL Hgb 9.7 L (12.0-16.0) g/dL Hct 29 L (33-41) % MCV 87 (80-97) fL MCH 29 (27-31) pg MCHC 33 (31-36) g/dL RDW 16 H (10.5-15) % Plt Count 223 (150-450) 10^3/uL MPV 8.2 (7.4-10.4) fL Neut % (Auto) 85.8 % Lymph % (Auto) 6.4 % [place] % (Auto) 7.1 % Eos % (Auto) 0.4 % Baso % (Auto) 0.3 % Absolute Neuts (auto) 6.4 (1.5-7.7) 10^3/ul Absolute Lymphs (auto) 0.5 L (1.0-4.8) 10^3/ul Absolute Monos (auto) 0.5 (0-0.8) 10^3/ul Absolute Eos (auto) 0 (0-0.6) 10^3/ul Absolute Basos (auto) 0 (0-0.2) 10^3/ul Absolute Nucleated RBC 0 10^3/ul Nucleated RBC % 0 INR (Anticoag Therapy) 1.02 (0.77-1.02) APTT 58.5 H (26.0-36.3) seconds Sodium (135-145) mmol/L Potassium (3.5-5.0) mmol/L Chloride (101-111) mmol/L Carbon Dioxide (22-32) mmol/L Anion Gap (2-11) mmol/L BUN (6-24) mg/dL Creatinine (0.51-0.95) mg/dL Est GFR ( Amer) (>60) Est GFR (Non-Af Amer) (>60) BUN/Creatinine Ratio (8-20) Glucose (70-100) mg/dL POC Glucose (mg/dL) 84 (70-100) mg/dL Lactic Acid (0.5-2.0) mmol/L Calcium (8.6-10.3) mg/dL Magnesium (1.9-2.7) mg/dL Total Bilirubin (0.2-1.0) mg/dL AST (13-39) U/L ALT (7-52) U/L Alkaline Phosphatase (34-104) U/L Troponin I (<0.04) ng/mL B-Natriuretic Peptide (<=100) pg/mL Total Protein (6.4-8.9) g/dL Albumin (3.2-5.2) g/dL Globulin (2-4) g/dL Albumin/Globulin Ratio (1-3) 08/13/18 08/13/18 08/13/18 Range/Units 15:45 15:45 15:45 WBC (3.5-10.8) 10^3/uL RBC (3.70-4.87) 10^6 /uL Hgb (12.0-16.0) g/dL Hct (33-41) % MCV (80-97) fL MCH (27-31) pg MCHC (31-36) g/dL RDW (10.5-15) % Plt Count (150-450) 10^3/uL MPV (7.4-10.4) fL Neut % (Auto) % Lymph % (Auto) % [place] % (Auto) % Eos % (Auto) % Baso % (Auto) % Absolute Neuts (auto) (1.5-7.7) 10^3/ul Absolute Lymphs (auto) (1.0-4.8) 10^3/ul Absolute Monos (auto) (0-0.8) 10^3/ul Absolute Eos (auto) (0-0.6) 10^3/ul Absolute Basos (auto) (0-0.2) 10^3/ul Absolute Nucleated RBC 10^3/ul Nucleated RBC % INR (Anticoag Therapy) (0.77-1.02) APTT (26.0-36.3) seconds Sodium 140 (135-145) mmol/L Potassium 3.9 (3.5-5.0) mmol/L Chloride 104 (101-111) mmol/L Carbon Dioxide 29 (22-32) mmol/L Anion Gap 7 (2-11) mmol/L BUN 18 (6-24) mg/dL Creatinine 0.54 (0.51-0.95) mg/dL Est GFR ( Amer) 130.8 (>60) Est GFR (Non-Af Amer) 108.1 (>60) BUN/Creatinine Ratio 33.3 H (8-20) Glucose 95 (70-100) mg/dL POC Glucose (mg/dL) (70-100) mg/dL Lactic Acid 0.5 (0.5-2.0) mmol/L Calcium 9.2 (8.6-10.3) mg/dL Magnesium 2.3 (1.9-2.7) mg/dL Total Bilirubin 0.50 (0.2-1.0) mg/dL AST 16 (13-39) U/L ALT 9 (7-52) U/L Alkaline Phosphatase 122 H (34-104) U/L Troponin I 0.01 (<0.04) ng/mL B-Natriuretic Peptide 177 H (<=100) pg/mL Total Protein 6.9 (6.4-8.9) g/dL Albumin 3.4 (3.2-5.2) g/dL Globulin 3.5 (2-4) g/dL Albumin/Globulin Ratio 1.0 (1-3) Assess/Plan/Problems-Billing Assessment: 82 yo female with PMH of esophageal cancer s/p chemo and radiation therapy, HTN, osteoarthritis, anemia, HLD, GERD, hiatal hernia and depression who presented on 08/13 with c/o dysphagia, weight loss - Patient Problems (1) Dysphagia Comment: - concern for stricture - Was able to take am meds with ice cream well per nurse w/o signs of aspiration. - Plan for upper endoscopy with Dr. Patiño tomorrow - NPO after midnight (2) Hypertension Comment: normotensive off anti-hypertensives (3) DVT prophylaxis Comment: HSQ Status and Disposition: OBV. Plan for endoscopy tomorrow. NPO after midnight
[2018-08-14] MEDS: Metoprolol Tartrate TAB* 100 MG TAB PO SCH (22:32)
[2018-08-15] MEDS: NS 0.9% 1000 ML** 1,000 ML IV SCH ×2 (02:04→17:50)
[2018-08-15 02:22] LABS: ABS Basophils 0 10^3/ul (0-0.2); ABS Eosinophils 0 10^3/ul (0-0.6); ABS Lymphocytes 0.4 10^3/ul (1.0-4.8); ABS Monocytes 0.4 10^3/ul (0-0.8); ABS Neutrophils 5.7 10^3/ul (1.5-7.7); ABS Nucleated RBC 0 10^3/ul; Eosinophil % 0.7 %; Hematocrit 27 % (33-41); Hemoglobin 8.6 g/dL (12.0-16.0); Lymphocyte % 6.6 %; Mean Corpuscular HGB Conc 32 g/dL (31-36); Mean Corpuscular Hemoglobin 28 pg (27-31); Mean Corpuscular Volume 88 fL (80-97); Mean Platelet Volume 8.3 fL (7.4-10.4); Nucleated Red Blood Cells % 0; Platelet Count 188 10^3/uL (150-450); Red Blood Count 3.04 10^6 /uL (3.70-4.87); Red Cell Distribution Width 16 % (10.5-15); White Blood Count 6.6 10^3/uL (3.5-10.8)
[2018-08-15 02:36] LABS: BUN/Creatinine Ratio 23.1 (8-20); Calcium 8.4 mg/dL (8.6-10.3); EGFR African American 136.6 (>60); EGFR Non-African American 112.9 (>60); Potassium 3.3 mmol/L (3.5-5.0)
[2018-08-15] MEDS: KCL 10 MEQ/50 ML IVPREMIX* 10 MEQ/50 ML BAG IV SCH ×2 (04:22→06:08)
[2018-08-15] MEDS: Heparin VIAL(*) 5000 UNITS/ML VIAL (FIVE THOUSAND) SUBCUT SCH ×3 (05:23→21:31)
[2018-08-15] MEDS ORDERED: KCL 20 MEQ/100 ML IVPREMIX* 20 MEQ/100 ML BAG IV ONE (08:40)
[2018-08-15 08:55] LABS: Magnesium 1.8 mg/dL (1.9-2.7)
[2018-08-15] MEDS: Metoprolol Tartrate TAB* 100 MG TAB PO SCH ×2 (09:08→21:30)
[2018-08-15] MEDS ORDERED: Magnesium Sulfate 1 GM IV* 1 GM/100 ML BAG IV ONE (10:08)
--- NOTE | 2018-08-15 10:13 | PN ---
Progress Note - Progress Note Date of Service: 08/15/18 SOAP: Subjective: []Progressive dysphagia over last month or two. Feeling fine today. Hopeful for improvement in swallowing after EGD today. Denies pains. Medications: Heparin Sodium (Porcine) (Heparin Vial(*)) 5,000 units SUBCUT Q8HR [facility] Last Admin: 08/15/18 05:23 Dose: Not Given Sodium Chloride (Ns 0.9% 1000 Ml) 1,000 mls @ 75 mls/hr IV PER RATE [facility] Last Admin: 08/15/18 02:04 Dose: 75 mls/hr Potassium Chloride (Potassium Chloride 20 Meq/100 Ml Ivpremix*) 20 meq in 100 mls @ 50 mls/hr IV ONCE ONE Stop: 08/15/18 10:39 Last Admin: 08/15/18 09:18 Dose: 50 mls/hr Magnesium Sulfate/Dextrose (Magnesium Sulfate 1 Gm Iv*) 1 gm in 100 mls @ 200 mls/hr IV ONCE ONE Stop: 08/15/18 10:37 Metoprolol Tartrate (Lopressor Tab*) 100 mg PO BID [facility] Last Admin: 08/15/18 09:08 Dose: 100 mg Objective: [] Vital Signs Temp Pulse Resp BP Pulse Ox 98.5 F 81 16 132/75 97 08/15/18 07:34 08/15/18 07:34 08/15/18 07:34 08/15/18 07:34 08/15/18 07:34 A&Ox3, EOMI, GO, neuro grossly non-focal HRR, S1S2 LS clear +BS, abd. soft and non-tender No peripheral edema noted Laboratory Results - last 24 hr 08/15/18 08/15/18 02:00 02:00 WBC 6.6 RBC 3.04 L Hgb 8.6 L Hct 27 L MCV 88 MCH 28 MCHC 32 RDW 16 H Plt Count 188 MPV 8.3 Neut % (Auto) 85.9 Lymph % (Auto) 6.6 [place] % (Auto) 6.5 Eos % (Auto) 0.7 Baso % (Auto) 0.3 Absolute Neuts (auto) 5.7 Absolute Lymphs (auto) 0.4 L Absolute Monos (auto) 0.4 Absolute Eos (auto) 0 Absolute Basos (auto) 0 Absolute Nucleated RBC 0 Nucleated RBC % 0 Sodium 139 Potassium 3.3 L Chloride 109 Carbon Dioxide 23 Anion Gap 7 BUN 12 Creatinine 0.52 Est GFR ( Amer) 136.6 Est GFR (Non-Af Amer) 112.9 BUN/Creatinine Ratio 23.1 H Glucose 79 Calcium 8.4 L Magnesium 1.8 L Assessment: []82 yo female with history esophageal cancer s/p definitive therapy completed with progressive dysphagia planned for EGD today. Mild hypokalemia related to poor PO intake and NPO status for test. Plan: []- EGD today - replace K+and Mg, repeat labs in AM Dispo: likely tomorrow
[2018-08-15] MEDS ORDERED: fentaNYL* 50 MCG/ML 2 ML VIAL (100 MCG VIAL) ONE (13:48)
[2018-08-15] MEDS ORDERED: Midazolam* 1 MG/ML 10 ML VIAL (10 MG) ONE (13:49)
--- NOTE | 2018-08-15 15:17 | CONS ---
CC: Melissa Mi NP * GASTROENTEROLOGY CONSULTATION DATE OF CONSULT: 08/15/2018. REQUESTING PHYSICIAN: Melissa Mi NP. INDICATION: Dysphagia. HISTORY OF PRESENT ILLNESS: Ms. Patel is a pleasant, 82-year-old female, well - known to myself. I diagnosed her with esophageal cancer almost a year ago tomorrow. She had undergone radiation and chemotherapy. Her oncologist had called last week for her to be seen urgently for her worsening dysphagia as she had a CT which showed distal esophageal thickening consistent either with a stricture or a malignancy. The patient was admitted to the hospital on Wednesday for worsening dysphagia. She has really had a difficult time eating anything at all. She just does not fell well. She feels dehydrated. She has lost approximately 15 to 20 pounds. No fevers or chills. No blood in her stool. She is also having some difficulties with liquids. PAST MEDICAL HISTORY: Significant for esophageal cancer, hypertension, osteoarthritis, long history of anemia, depression, hiatal hernia, GERD, and hyperlipidemia. PAST SURGICAL HISTORY: Hip replacement, eye surgery. MEDICATIONS AT HOME: Acetaminophen, Losartan, ibuprofen, Metoprolol, Furosemide , magnesium, and potassium. ALLERGIES: PANTOPRAZOLE, ATORVASTATIN. FAMILY HISTORY: Type 1 diabetes, breast cancer. SOCIAL HISTORY: She denies any tobacco or alcohol use. REVIEW OF SYSTEMS: Twelve systems were reviewed. Other than that mentioned in the HPI were unremarkable. PHYSICAL EXAM: General: Chronically ill-appearing, elderly female lying flat in bed. Alert, oriented, pleasant, fluent. Vital Signs: Temperature 98.6, blood pressure 151/54, pulse 79, respiratory rate 20, O2 sat 98 percent. HEENT : Dentition is poor. Mucus membranes are dry without lesions, ulcers, or exudate. Head is normocephalic, atraumatic. Neck: Supple. Trachea is midline. Heart: Regular rate and rhythm. Lungs: Clear to auscultation. Abdomen: Positive bowel sounds, soft, nontender, nondistended. No hepatosplenomegaly, masses, rebound, or guarding. Skin: Warm and dry. DIAGNOSTIC STUDIES/LAB DATA: Labs of note: White count of 6.6, hemoglobin of 8.6, platelets of 188; INR 1.02; sodium is normal at 139, BUN and creatinine are normal. She does have a chest CT from July 15 that shows a mass-like mucosal thickening of the distal third of the esophagus. Proximal esophagus is patulous and fluid filled suggestive of some degree of mechanical obstruction which appears to have progressed since March 2018. ASSESSMENT AND PLAN: Very pleasant, 82-year-old female with known esophageal cancer treated with radiation and chemo. She now has worsening dysphagia and a CT that is suggestive of either malignancy versus a stricture. I had a long discussion with the patient regarding further treatment options, including an EGD. If this is a stricture, we may be able to help dilate it, but if it is a malignancy, dilatation will not help at all. We discussed possible esophageal stent versus repeated radiation therapy. I will make arrangements for her EGD. [id number]/[facility] #: [id number] BETHESDA HOSPITALKiesha
[2018-08-16] MEDS ORDERED: hydrALAZINE IV* 20 MG/ML VIAL IV SLOW PU PRN (00:04)
--- NOTE | 2018-08-16 03:38 | PRO ---
CC: Dr. Chandrika Cobos; Dr. Krysten Bruner * DATE OF PROCEDURE: 08/15/18 - ROOM #413 PROCEDURE: EGD. INDICATION: Dysphagia. REFERRED PHYSICIAN: Dr. Chandrika Cobos. MEDICATIONS GIVEN: 25 mcg IV fentanyl, 3 mg IV Versed. DESCRIPTION OF PROCEDURE: After the EGD procedure including the risks, benefits , and alternatives, not limited to perforation, surgery, and/or were explained to the patient, written consent was then obtained. IV medication was given and a bite-block was placed between the teeth. An Olympus gastroscope was then inserted down in the patient's mouth, advanced down the esophagus. At 30 cm from the incisors, there was a large-necrotic appearing mass. Initially, I thought it could potentially be food; however, I did take 2 biopsies of this and the biopsy sites bled. The rest of the esophagus did appear ulcerated. The scope was then withdrawn from the patient. She tolerated the procedure well and was returned to her hospital room in stable condition. IMPRESSION: 1. EGD with biopsies. 2. Esophageal mass, status post biopsies. 3. I will follow up on all the biopsies and report back to the patient at that time. The findings were discussed with Melissa Mi immediately after the procedure. [id number]/[facility] #: [id number] [facility] CENTERKiesha
[2018-08-16] MEDS: Heparin VIAL(*) 5000 UNITS/ML VIAL (FIVE THOUSAND) SUBCUT SCH (05:14)
[2018-08-16 06:08] LABS: Magnesium 1.8 mg/dL (1.9-2.7)
[2018-08-16] MEDS: NS 0.9% 1000 ML** 1,000 ML IV SCH (07:39)
[2018-08-16 07:46] VITALS: BP 149/67
[2018-08-16 08:28] LABS: Potassium 3.5 mmol/L (3.5-5.0)
[2018-08-16] MEDS: Metoprolol Tartrate TAB* 100 MG TAB PO SCH (09:36)
--- NOTE | 2018-08-16 11:17 | CONSULT ---
Palliative / Hospice Consult Ordering Provider: Melissa Mi - Subjective Code Status: Full Code Advance Directives Location: [facility] [place] [facility] Part A Completed: No MOLST Part E Completed:: No - History or Present Illness History or Present Illness: 82yo female with esophageal cancer s/p chemo and radiation presented to ER with dysphagia and 16 lb weight loss. PMH significant for HTN, OA, anemia, hyperlipidemia, GERD, hiatal hernia and depression. She underwent EGD 30cm large necrotic tumor wh was biopsied but couldn't pass scope any further. CXR showed COPD and L basilar atelectasis vs consolidation. H/H 8.6/27, alb 3.4 tprot 6.9. non smoker/ non drug user, no etoh from complications of diabetes type 1. [place] with son and daughter in law who are her care takers. Lab Values: Abnormal Lab Results 08/16/18 08/16/18 05:20 05:20 Potassium 3.5 Magnesium 1.8 L B-Natriuretic Peptide 283 H Laboratory Last Values WBC 6.6 10^3/uL (3.5-10.8) 08/15/18 02:00 RBC 3.04 10^6 /uL (3.70-4.87) L 08/15/18 02:00 Hgb 8.6 g/dL (12.0-16.0) L 08/15/18 02:00 Hct 27 % (33-41) L 08/15/18 02:00 MCV 88 fL (80-97) 08/15/18 02:00 MCH 28 pg (27-31) 08/15/18 02:00 MCHC 32 g/dL (31-36) 08/15/18 02:00 RDW 16 % (10.5-15) H 08/15/18 02:00 Plt Count 188 10^3/uL (150-450) 08/15/18 02:00 MPV 8.3 fL (7.4-10.4) 08/15/18 02:00 Neut % (Auto) 85.9 % 08/15/18 02:00 Lymph % (Auto) 6.6 % 08/15/18 02:00 Lyon % (Auto) 6.5 % 08/15/18 02:00 Eos % (Auto) 0.7 % 08/15/18 02:00 Baso % (Auto) 0.3 % 08/15/18 02:00 Absolute Neuts (auto) 5.7 10^3/ul (1.5-7.7) 08/15/18 02:00 Absolute Lymphs (auto) 0.4 10^3/ul (1.0-4.8) L 08/15/18 02:00 Absolute Monos (auto) 0.4 10^3/ul (0-0.8) 08/15/18 02:00 Absolute Eos (auto) 0 10^3/ul (0-0.6) 08/15/18 02:00 Absolute Basos (auto) 0 10^3/ul (0-0.2) 08/15/18 02:00 Absolute Nucleated RBC 0 10^3/ul 08/15/18 02:00 Nucleated RBC % 0 08/15/18 02:00 INR (Anticoag Therapy) 1.02 (0.77-1.02) 08/13/18 15:45 APTT 58.5 seconds (26.0-36.3) H 08/13/18 15:45 Sodium 139 mmol/L (135-145) 08/15/18 02:00 Potassium 3.5 mmol/L (3.5-5.0) 08/16/18 05:20 Chloride 109 mmol/L (101-111) 08/15/18 02:00 Carbon Dioxide 23 mmol/L (22-32) 08/15/18 02:00 Anion Gap 7 mmol/L (2-11) 08/15/18 02:00 BUN 12 mg/dL (6-24) 08/15/18 02:00 Creatinine 0.52 mg/dL (0.51-0.95) 08/15/18 02:00 Est GFR ( Amer) 136.6 (>60) 08/15/18 02:00 Est GFR (Non-Af Amer) 112.9 (>60) 08/15/18 02:00 BUN/Creatinine Ratio 23.1 (8-20) H 08/15/18 02:00 Glucose 79 mg/dL (70-100) 08/15/18 02:00 POC Glucose (mg/dL) 84 mg/dL (70-100) 08/13/18 15:06 Lactic Acid 0.5 mmol/L (0.5-2.0) 08/13/18 15:45 Calcium 8.4 mg/dL (8.6-10.3) L 08/15/18 02:00 Magnesium 1.8 mg/dL (1.9-2.7) L 08/16/18 05:20 Total Bilirubin 0.50 mg/dL (0.2-1.0) 08/13/18 15:45 AST 16 U/L (13-39) 08/13/18 15:45 ALT 9 U/L (7-52) 08/13/18 15:45 Alkaline Phosphatase 122 U/L (34-104) H 08/13/18 15:45 Troponin I 0.01 ng/mL (<0.04) 08/13/18 17:47 B-Natriuretic Peptide 283 pg/mL (<=100) H 08/16/18 05:20 Total Protein 6.9 g/dL (6.4-8.9) 08/13/18 15:45 Albumin 3.4 g/dL (3.2-5.2) 08/13/18 15:45 Globulin 3.5 g/dL (2-4) 08/13/18 15:45 Albumin/Globulin Ratio 1.0 (1-3) 08/13/18 15:45 - Objective Active Medications: Heparin Sodium (Porcine) (Heparin Vial(*)) 5,000 units SUBCUT Q8HR [facility] Last Admin: 08/16/18 05:14 Dose: 5,000 units Hydralazine HCl (Apresoline Iv*) 5 mg IV SLOW PU Q6H PRN PRN Reason: BLOOD PRESSURE Last Admin: 08/16/18 00:29 Dose: 5 mg Sodium Chloride (Ns 0.9% 1000 Ml) 1,000 mls @ 75 mls/hr IV PER RATE [facility] Last Admin: 08/16/18 07:39 Dose: 75 mls/hr Metoprolol Tartrate (Lopressor Tab*) 100 mg PO BID [facility] Last Admin: 08/16/18 09:36 Dose: 100 mg Vital Signs: Vital Signs: Temp Pulse Resp BP Pulse Ox 97.3 F 80 16 149/67 96 08/16/18 07:41 08/16/18 07:41 08/16/18 08:00 08/16/18 07:41 08/16/18 07:41 Patient Weight: Weight 47.854 kg Intake and Output: Intake & Output 08/14/18 08/15/18 08/16/18 08/17/18 06:59 06:59 06:59 06:59 Intake Total 1360 4012 2676 15 Output Total 0 Balance 1360 4012 2676 15 Weight 47.854 kg Intake: IV Fluids 1000 3284 2666 KCL 50 NS (0.9%) 1121 1576 all fluids 1173 magnesium 50 IVPB 53 KCL 53 Oral 360 675 10 15 Output: Urine 0 Other: Estimated Void Medium # Bowel Movements 0 0 1 Estimated Stool Amount Medium # Voids 0 0 1 ADLs: Meal Record Start: 08/13/18 20: 54 Freq: DAILY@0900,1400,1800 Status: Active Protocol: Created 08/13/18 20:54 System (Rec: 08/13/18 20:54 System MED-C16) Document 08/14/18 09:00 [id number] (Rec: 08/14/18 13:08 [id number] MED-C11) Document 08/14/18 14:00 [id number] (Rec: 08/14/18 14:34 [id number] MED-C09) Document 08/14/18 18:00 [id number] (Rec: 08/14/18 18:51 [id number] MED-C11) Document 08/15/18 08:48 [id number] (Rec: 08/15/18 08:48 [id number] MED-C11) Document 08/15/18 13:34 [id number] (Rec: 08/15/18 13:35 [id number] MED-M01) Document 08/15/18 18:00 [id number] (Rec: 08/16/18 01:17 [id number] MEDL-C01) Document 08/16/18 09:00 [id number] (Rec: 08/16/18 09:58 [id number] MED-C09) Intake and Output Start: 08/13/18 14: 57 Freq: Status: Active Protocol: Created 08/13/18 14:57 System (Rec: 08/13/18 14:57 System ED-C24) Intake and Output Start: 08/13/18 20: 54 Freq: DAILY@0600,1400,2200 Status: Active Protocol: Created 08/13/18 20:54 System (Rec: 08/13/18 20:54 System MED-C16) Document 08/14/18 05:28 [id number] (Rec: 08/14/18 05:28 [id number] MED-C42) Document 08/14/18 14:00 [id number] (Rec: 08/14/18 14:34 [id number] MED-C09) Document 08/14/18 22:00 [id number] (Rec: 08/14/18 22:15 [id number] MED-C11) Document 08/15/18 04:54 [id number] (Rec: 08/15/18 04:55 [id number] MED-C09) Document 08/15/18 13:35 [id number] (Rec: 08/15/18 13:35 [id number] MED-M01) Document 08/15/18 21:59 [id number] (Rec: 08/15/18 22:00 [id number] MEDL-C01) Document 08/16/18 05:14 [id number] (Rec: 08/16/18 05:14 [id number] MED-C11) Neck: NL Appearance and Movements; NL JVP Cardiovascular: NL Sounds; No Murmurs; No JVD Respiratory: Clear to Auscultation Extremities: No Edema Neurological: Alert and Oriented x 3 - Assessment Assessment: 82 yo female with esophageal cancer to pursue radiation to help with dysphagia - Plan Consult Plan (MU): Palliative Plan: Discussion with pt about late goals of care. Currently she is going to pursue palliative radiation to help shrink the tumor so she can swallow. She has done well with radiation in the past. We did talk about if it didn't work would she like a PEG tube but she wasn't sure she would like to pursue that. Did not address MOLST today. I did give her information and a brochure about hospice for the future and explained she could self refer or could refer her. She would be interested in home hospice because she seems to have 24hr coverage at home. Also spoke of support taoist community. KPS 60% PPS 60% - Time On Unit Date of Evaluation: 08/16/18 Hospice Consult Time in: 10:45 Hospice Consult Time Out: 11:45 Hospice Consult Time Total: 60 > 50% of Time Spend In Counseling or Coordinating Care: Yes
--- NOTE | 2018-08-16 11:25 | DS ---
- Discharge Summary Admission Date: 08/13/18 OBV, full admit 08/15/18 Discharge Date: 08/16/18 Discharge Diagnosis: 1. Dysphagia 2/2 recurrent esophageal tumor: [facility] consult tomorrow to consider palliative RT 2. HTN: resume home meds Disposition: stable Diet: soft as tolerated Activity: as tolerated Discharge Medications: Home Medications Medication Instructions Recorded Confirmed Type Metoprolol Tartrate TAB* 100 mg PO BID 05/23/14 08/13/18 History [Lopressor TAB*] Furosemide TAB* [Lasix TAB*] 20 mg PO 1200 07/28/17 08/13/18 History Acetaminophen [Tylenol Extra 500 mg PO QAM 08/16/17 08/13/18 History Strength] Ferrous Gluconate TAB* [Fergon 324 mg PO QAM 08/16/17 08/13/18 History TAB*] Losartan Potassium 100 mg PO QAM 08/16/17 08/13/18 History Potassium Chlor TAB* [Potassium 20 meq PO BID #60 tab.er 10/18/17 08/13/18 Rx Chlor TAB 20 MEQ*] Hospital Course: Please see admission note for full H&P, however briefly, Mrs. Patel is well known to our service due to her diagnosis of esophageal cancer. She completed definitive combined modality therapy in October 2017 and has recovered well. Over the past month or so she has experienced progressive dysphagia and was set up for an outpatient EGD. Unfortunately she presented to the ER on 08/13 with significant progression of her dysphagia limiting her ability to eat and drink. She was admitted for observation and had her EGD performed on 08/15. This revealed a recurrent necrotic tumor, easily friable, at 30 cm, biopsies were obtained, however the location is at the site of her primary therefore this appears to be a local recurrence. Final path is pending. She had mild hypokalemia yesterday due to her NPO status and therefore was monitored overnight. She was seen by Dr. Carolina today to review her current diagnosis. She would like to attempt therapy and will see Dr. Hurley for radiation consultation tomorrow. At this time she is stable for discharge home and would like to return home. She received a palliative care consult today as well. We reviewed the risk of bleeding from her tumor and reviewed S/S to monitor for. She will resume her home meds, all normal activities, and we have recommended a soft diet due to the stricture of her esophagus related to the tumor. She will follow-up with [facility] in 3 weeks. >40 min spent with >50% face to face counseling
== END 2018-08-16 12:25 | disposition home or self-care (01) | DRG 240 ==
LOC: ED 14:48 → MED 18:06 → OBSVTOIN 08-15 10:13
PROVIDERS: ADMIT Internal Medicine Hematology & Oncology; ATTEND Internal Medicine Hematology & Oncology
PROC: 0DB58ZX Excision of Esophagus, Via Natural or Artificial Opening Endoscopic, Diagnostic (ICD-10-PCS; principal; 2018-08-15)
DX: C15.9 Malignant neoplasm of esophagus, unspecified (principal); I10 Essential (primary) hypertension; E78.00 Pure hypercholesterolemia, unspecified; M19.90 Unspecified osteoarthritis, unspecified site; K21.9 Gastro-esophageal reflux disease without esophagitis; K44.9 Diaphragmatic hernia without obstruction or gangrene; J44.9 Chronic obstructive pulmonary disease, unspecified; D64.9 Anemia, unspecified; E86.0 Dehydration; E78.5 Hyperlipidemia, unspecified; R63.4 Abnormal weight loss; E87.6 Hypokalemia; F32.9 Major depressive disorder, single episode, unspecified; Z96.641 Presence of right artificial hip joint; Z82.49 Family history of ischemic heart disease and other diseases of the circulatory system; Z88.8 Allergy status to other drugs, medicaments and biological substances; Z83.3 Family history of diabetes mellitus; Z80.3 Family history of malignant neoplasm of breast; Z87.442 Personal history of urinary calculi; Z68.20 Body mass index [BMI] 20.0-20.9, adult
CPT/HCPCS: 36415; 71045; 80048; 80053; 83605; 83735; 83880; 84132; 84484; 85025; 85610; 85730; 88305; 88341; 88342; 88360; 93005; 99156; 99157; 99233; 99239; 99284; A9270-GY; G0378; J0360; J1642; J1644; J2250; J3010; J3475; J3480

== ENCOUNTER 2019-01-21 20:26 | Emergency (ER) | payer MEDICARE, OTHER ==
[2019-01-21] MEDS ORDERED: NS 0.9% 1000 ML** 1,000 ML IV ONE ×2 (21:02→22:19)
--- NOTE | 2019-01-21 21:14 | ED ---
Shortness of Breath - HPI Summary HPI Summary: Pt is an 83 y/o F presenting to the ED with a chief complaint of shortness of breath. She states that her SOB worsened since this morning, and is now accompanied by lower sternal CP that radiates to her back and is aggravated by deep breaths. She also reports mild abd pain, decreased oral intake, N/V, trouble swallowing, and weight loss. She denies fever, cough, recent URI, or recent tx for her esophageal CA. - History of Current Complaint Chief Complaint: EDShortnessOfBreath Time Seen by Provider: 01/21/19 20:55 Hx Obtained From: Patient Onset/Duration: Gradual Onset, Lasting Hours, Still Present Timing: Constant Current Severity: Moderate Dyspnea At: Rest Aggravating Factors: Nothing Alleviating Factors: Nothing Associated Signs & Symptoms: Negative - Allergy/Home Medications Allergies/Adverse Reactions: Allergies Allergy/AdvReac Type Severity Reaction Status Date / Time pantoprazole Allergy Severe SKIN Verified 01/21/19 20:36 PEELED RIGHT OFF atorvastatin [From Lipitor] Allergy Intermediate Rash Verified 01/21/19 20:36 PMH/Surg Hx/FS Hx/Imm Hx Previously Healthy: Yes Endocrine/Hematology History: Reports: Hx Anemia - IRON Denies: Hx Diabetes, Hx Thyroid Disease Cardiovascular History: Reports: Hx Hypercholesterolemia, Hx Hypertension - CONTROLLED WITH MEDS Comment Only: 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 Respiratory History: Denies: Hx Asthma, Hx Chronic Obstructive Pulmonary Disease (COPD) GI History: Reports: Hx Gastroesophageal Reflux Disease, Hx Hiatal Hernia Denies: Hx Gall Bladder Disease History: Reports: Hx Kidney Stones - LAST YEAR Denies: Hx Chronic Renal Failure, Hx Renal Disease Musculoskeletal History: Reports: Hx Arthritis - OSTEOARTHRITIS, Hx Back Problems Sensory History: Reports: Hx Contacts or Glasses Denies: Hx Hearing Aid Opthamlomology History: Reports: Hx Contacts or Glasses Neurological History: Denies: Hx CVA, Hx Migraine, Hx Seizures Psychiatric History: Reports: Hx Depression - passing of love ones - Cancer History Cancer Type, Location and Year: ESOPHAGEAL CANCER 2018 Hx Chemotherapy: No - WILL START WEDNESDAY - Surgical History Surgery Procedure, Year, and Place: Uteran Prolapse repair , right total hip Hx Anesthesia Reactions: No Infectious Disease History: No Infectious Disease History: Denies: Traveled Outside the [place] in Last 30 Days - Family History Known Family History: Positive: Hypertension - Social History Alcohol Use: None Hx Substance Use: No Substance Use Type: Reports: None Hx Tobacco Use: No Smoking Status (MU): Never Smoked Tobacco Review of Systems Positive: Other - decreased oral intake, weight loss. Negative: Fever Positive: Other - trouble swallowing Positive: Chest Pain Positive: Shortness Of Breath. Negative: Cough Positive: Abdominal Pain, Vomiting, Nausea All Other Systems Reviewed And Are Negative: Yes Physical Exam - Summary Physical Exam Summary: Appearance: Frail, cachectic appearing elderly woman laying on stretcher in no acute distress. Skin: Warm, dry, no obvious rash Eyes: sclera anicteric, no conjunctival pallor ENT: mucous membranes moist, pharynx appears normal Neck: Supple, nontender Respiratory: Clear to auscultation, no signs of respiratory distress Cardiovascular: Normal S1, S2. No murmurs. Normal distal pulses in tibial and radial bilaterally. Abdomen: Soft, nontender, normal active bowel sounds present Musculoskeletal: Normal, Strength/ROM Intact Neurological: A&Ox3, awake and alert, mentation is normal, speech is fluent and appropriate Psychiatric: affect is normal, does not appear anxious or depressed Triage Information Reviewed: Yes Vital Signs On Initial Exam: Initial Vitals Temp Pulse Resp BP Pulse Ox 98.5 F 57 16 105/42 96 01/21/19 20:29 01/21/19 20:29 01/21/19 20:29 01/21/19 20:29 01/21/19 20:29 Vital Signs Reviewed: Yes Diagnostics - Vital Signs Vital Signs Temp Pulse Resp BP Pulse Ox 01/21/19 20:29 98.5 F 57 16 105/42 96 - Laboratory Result Diagrams: 01/21/19 21:16 01/21/19 22:09 Lab Statement: Any lab studies that have been ordered have been reviewed, and results considered in the medical decision making process. - Radiology CXR Radiology Interpretation Completed By: ED Physician Summary of Radiographic Findings: Either effusion or infiltrate in the L lower lobes. Pending official radiology report. - CT Chest/Thorax CTA CT Interpretation Completed By: Radiologist Summary of CT Findings: 1. No pulmonary embolism. 2. Masslike thickening in the distal esophagus, which is in keeping with the patient's history of esophageal cancer, and there is distention of the esophagus more proximally with a large amount of fluid. An esophageal obstruction or stenosis is possible. 3. 7 mm solid pulmonary nodule in the posterior segment of the right upper lobe and an 8 mm solid pulmonary nodule in the right lower lobe that have developed since the prior CT scan on 07/15/2018. 4. Mucous plugging and atelectasis in the left lower lobe and to a lesser extent in the posterior segment of the right lower lobe. 5. Small left pleural effusion. 6. Cardiomegaly and a small transudative pericardial effusion. 7. Dilated ascending aorta (4 cm), which is stable compared to the prior CT scans on 2018 and 10/14/2018. 8. Large hiatal hernia. ED physician has reviewed this report. - EKG 2047 Cardiac Rate: Bradycardia - 57bpm EKG Rhythm: Sinus Bradycardia ST Segment: Normal Ectopy: None Summary of EKG Findings: EKG at 2037 shows sinus bradycardia at 57bpm, P waves, QRS complex, and T waves are within normal limits, T waves and intervals are normal, no ischemic changes. This is a normal EKG. Course/Dx - Course Course Of Treatment: Pt is an 83 y/o F presenting to the ED with a chief complaint of shortness of breath. She states that her SOB worsened since this morning, and is now accompanied by lower sternal CP that radiates to her back and is aggravated by deep breaths. She also reports mild abd pain, decreased oral intake, N/V, trouble swallowing, and weight loss. She denies fever, cough, recent URI, or recent tx for her esophageal CA. EKG at 2037 shows sinus bradycardia at 57bpm, P waves, QRS complex, and T waves are within normal limits , T waves and intervals are normal, no ischemic changes. This is a normal EKG. CXR shows either effusion or infiltrate in the L lower lobes, pending official radiology report. Pts hematology shows RBC of 3.40, Hgb of 9.0, Hct of 28, MCH of 26, and RDW of 20. Chemistry shows Chloride of 100, BUN of 41, Creatinine of 0.98, BUN/Creatinine ratio of 41.8, Alkaline Phosphate of 124, Albumin of 3.1, and Albumin/Globulin ratio of 0.8. CTA Chest/Thorax shows: 1. No pulmonary embolism. 2. Masslike thickening in the distal esophagus, which is in keeping with the patient's history of esophageal cancer, and there is distention of the esophagus more proximally with a large amount of fluid. An esophageal obstruction or stenosis is possible. 3. 7 mm solid pulmonary nodule in the posterior segment of the right upper lobe and an 8 mm solid pulmonary nodule in the right lower lobe that have developed since the prior CT scan on . 4. Mucous plugging and atelectasis in the left lower lobe and to a lesser extent in the posterior segment of the right lower lobe. 5. Small left pleural effusion. 6. Cardiomegaly and a small transudative pericardial effusion. 7. Dilated ascending aorta (4 cm), which is stable compared to the prior CT scans on 07/15/2018 and 10/14/2018. 8. Large hiatal hernia. The pt will be d/c'ed with dx of dyspnea. She is stable and agreeable with this plan. - Diagnoses Provider Diagnoses: Dyspnea Discharge ED - Sign-Out/Discharge Documenting (check all that apply): Patient Departure Patient Received Moderate/Deep Sedation with Procedure: No - Discharge Plan Condition: Stable Disposition: HOME Patient Education Materials: Dyspnea (ED) Referrals: Hollie DELACRUZ,Chandrika Hunt [Medical Doctor] - Additional Instructions: The xray and CT scans we did tonight did not show any sign of infection or blood clots in the lungs. Since you are feeling somewhat better and the rest of your tests look generally ok, we can safely discharge you from the ED tonight, but please call your oncologist on Wednesday to followup with them. - Billing Disposition and Condition Condition: STABLE Disposition: Home - Attestation Statements Document Initiated by Anthony: Yes Documenting Scribe: Landy Mckeon Provider For Whom Anthony is Documenting (Include Credential): Evaristo Concepcion MD. Scribe Attestation: Landy Marti, scribed for Evaristo Concepcion MD. on 01/23/19 at 0514. Scribe Documentation Reviewed: Yes Provider Attestation: The documentation as recorded by the carrieibLandy doran accurately reflects the service I personally performed and the decisions made by me, Evaristo Concepcion MD. Status of Scribe Document: Viewed
[2019-01-21 21:21] LABS: ABS Lymphocytes 0.3 10^3/ul (1.0-4.8); ABS Monocytes 0.4 10^3/ul (0-0.8); ABS Neutrophils 6.1 10^3/ul (1.5-7.7); Eosinophil % 0.5 %; Hematocrit 28 % (35-47); Lymphocyte % 4.1 %; Mean Corpuscular HGB Conc 32 g/dL (31-36); Mean Corpuscular Hemoglobin 26 pg (27-31); Mean Corpuscular Volume 82 fL (80-97); Mean Platelet Volume 8.5 fL (7.4-10.4); Platelet Count 273 10^3/uL (150-450); Red Cell Distribution Width 20 % (10-15); White Blood Count 6.9 10^3/uL (3.5-10.8)
[2019-01-21 21:39] LABS: ALT 13 U/L (7-52); Albumin 3.1 g/dL (3.2-5.2); Albumin/Globulin Ratio 0.8 (1-3); Alkaline Phosphatase 124 U/L (34-104); BUN/Creatinine Ratio 41.8 (8-20); Blood Urea Nitrogen 41 mg/dL (6-24); CO2 Carbon Dioxide 30 mmol/L (22-32); Calcium 9.6 mg/dL (8.6-10.3); Chloride 100 mmol/L (101-111); EGFR African American 65.6 (>60); EGFR Non-African American 54.2 (>60); Globulin 3.8 g/dL (2-4); Glucose 115 mg/dL (70-100); Sodium 136 mmol/L (135-145); Total Protein 6.9 g/dL (6.4-8.9)
[2019-01-21 21:40] LABS: Troponin I 0.01 ng/mL (<0.04)
[2019-01-21 21:57] LABS: Anion Gap 6 mmol/L (2-11)
[2019-01-21 22:32] LABS: Potassium Redraw 4.4 mmol/L (3.5-5.0)
[2019-01-22] MEDS ORDERED: Iodixanol* (CONTRAST) 320 MG/ML 100 ML SDV IV ONE (03:07)
[2019-01-22 06:02] VITALS: BP 109/52
== END 2019-01-22 06:01 | disposition home or self-care (01) ==
LOC: ED 20:26
DX: R06.00 Dyspnea, unspecified (principal); I10 Essential (primary) hypertension; E78.00 Pure hypercholesterolemia, unspecified; K21.9 Gastro-esophageal reflux disease without esophagitis; Z87.442 Personal history of urinary calculi; C15.9 Malignant neoplasm of esophagus, unspecified; M19.90 Unspecified osteoarthritis, unspecified site; R00.1 Bradycardia, unspecified; R91.1 Solitary pulmonary nodule; J90 Pleural effusion, not elsewhere classified; K44.9 Diaphragmatic hernia without obstruction or gangrene
CPT/HCPCS: 36415; 71046; 71275; 80053; 84484; 85025; 86850; 86870; 86880; 86900; 86901; 93005; 96360; 96361; 99282; Q9967